=== PATIENT | female | born 1970 | race Caucasian/White ===

== ENCOUNTER → 2017-05-01 | Outpatient (CLI) | payer OTHER ==
--- NOTE | 2017-05-01 08:26 | MM ---
Reason for exam: screening (asymptomatic). Baseline mammogram. History: Took hormonal contraceptives for 4 years. Physical Findings: Nurse did not find any significant physical abnormalities on exam. MG Screening Mammo w CAD Bilateral CC and MLO view(s) were taken. The breast tissue is extremely dense which could obscure a lesion on mammography. Benign calcifications. There is chronic nodularity bilaterally. These results were verbally communicated with the patient and result sheet given to the patient on 05/01/17. ASSESSMENT: Benign, BI-RAD 2 RECOMMENDATION: Routine screening mammogram of both breasts in 1 year.
== END | disposition home or self-care (01) ==
LOC: RADMAMWWP 07:44
PROVIDERS: ATTEND Family Medicine
DX: Z12.31 Encounter for screening mammogram for malignant neoplasm of breast (principal)

== ENCOUNTER → 2020-04-25 | Outpatient (CLI) | payer OTHER ==
--- NOTE | 2020-04-26 10:58 | EEG ---
ELECTROENCEPHALOGRAM REPORT DATE OF SERVICE: 04/25/2020 PREAMBLE: This is a 49-year-old female who has been having difficulty staying awake through the day for 7 years. She will constantly fall asleep at any time. She used to be able to snap out of it quickly, however, more recently she has been having more difficulty orienting right afterwards. It has happened a couple times while driving. EEG FINDINGS: This is a 21 channel routine EEG recording in a patient utilizing 10/20 international system with referential and bipolar montages. The background consists of well developed, well regulated, moderate voltage activity in a 9-10 hertz alpha. Background is posterior dominant and reactive to eye opening and closing. Photic driving response was not seen. However, after 14 hertz, patient became very shaky, anxious, after which photic stimulation had to be discontinued. During this time, only high amplitude myogenic activity was seen. No epileptiform activity was seen during this time. Hyperventilation revealed no abnormalities. No focal or generalized epileptiform activity was seen. IMPRESSION: This is a normal awake EEG. No focal lateralized or epileptiform activity was seen. MMODL / IJN: [id number] /
== END | disposition home or self-care (01) ==
LOC: NEUROMAIN 04-24 07:57
PROVIDERS: ATTEND Family Medicine
DX: R56.9 Unspecified convulsions (principal)
CPT/HCPCS: 95816

== ENCOUNTER → 2020-05-09 | Outpatient (CLI) | payer OTHER ==
--- NOTE | 2020-05-09 16:20 | CONS ---
CONSULTATION REASON FOR CONSULTATION: Chronic hypersomnia. This is a 50-year-old female patient who has been having increased sleepiness to the point where this is affecting her functionality at work. She works for [email or web address] and she does and she works on a computer for quite some time. She is having tiredness and sleepiness to the point where she is having a hard time keeping herself awake while at work. Her condition has gotten worse and she is having some occasional sleep attacks for brief period of time. She drives only 4 miles back and forth to work and she has not had any motor vehicle accidents. She has been going to sleep at around 11 p.m., and she is waking up at 5 a.m. in the morning and this is her routine schedule. No change in her sleep schedule at all. She has been feeling depressed and she was started on Prozac 20 mg p.o. daily and she takes 6 o'clock in the morning. She has been told to snore occasionally. No reported witnessed apneas. She does grind her teeth and she has some restlessness in lower extremities bilaterally. She is a nose breather. No dry mouth, no episodes of waking up gasping for air. No heartburn or palpitation. As mentioned, she is waking up tired and sleepy. She takes naps during the day and during her lunchtime she takes a brief nap and this helps her quite a bit in getting refreshed. She also drinks coffee and she is drinking more to keep herself stimulated. No energy drinks. No history of substance abuse. No history of alcoholism. No history of head trauma. No history of meningitis. No history of any neurologic disease such as MS or CVA. No history of any dementia. She has no sleep paralysis, hallucinations or cataplexy. At times, she feels that her muscles are quite weak and this happens to her especially when she is fighting to stay awake. This is not related to any emotional situations such as laughter or anger. PAST MEDICAL HISTORY: Of depression on Prozac 20 mg p.o. daily. She has also history of allergic rhinitis. PAST SURGICAL HISTORY: Includes rotator cuff surgery and muscle repair in 2002 on the right and tubal ligation. DRUG ALLERGIES: None She has seasonal allergies. MEDICATIONS: Includes Prozac 20 mg p.o. daily and Flonase as needed. FAMILY HISTORY: Negative for narcolepsy. Negative for sleep apnea. REVIEW OF SYSTEMS: A 12-point review of system was done, positive findings are mentioned above in history of present illness. No recent weight gain or weight loss. The patient's body weight has been essentially stable. The patient sleeps on her back and she has a TV in her bedroom. Her weight has been stable, probably around 5 pounds weight gain over the past few years. No cough, sputum production, SOB. No nausea, vomiting. No heartburn. Some restlessness in the lower extremities. No sleepwalking or sleeptalking. No anxiety. No depression. Positive depression. No heartburn. BP is 131/78, pulse 76, respirations 16, temperature 98.1, saturation 99% on room air. Height is 5, 7 inches, weight is 131 and neck size is 13-1/3 of an inch. GENERAL APPEARANCE: Calm, comfortable. HEAD: Atraumatic, normocephalic. NECK: Supple. No JVD. No goiter or neck masses. Mallampati Class 1. LUNGS: Clear to auscultation. HEART: Heart sounds are regular rate and rhythm. Normal S1, S2. No S3, S4. No murmurs. ABDOMEN: Soft, nontender, no organomegaly. EXTREMITIES: No edema, no cyanosis or clubbing. NEUROLOGIC: Awake and alert, there is no focal neurological deficit. IMPRESSION: 1. Chronic hypersomnia. Rule out narcolepsy. Rule out a primary idiopathic hypersomnia. Sleep apnea is felt to be less likely. 2. History of depression on Prozac. 3. Chronic rhinitis. 4. Chronic sleepiness, current [place] Score is at 17. PLAN: 1. Will ask the patient to extend her sleep hours to an average of 7-8 hours if possible. 2. Caffeine will be helpful for daytime stimulation. This is advised. 3. Will advise to take naps during the day to help her get refreshed. 4. Will hold Prozac for around 2 weeks and this will be followed up by a PSG and second-day MSLT, looking for narcolepsy or any other pathology contributing to her chronic hypersomnia. 5. Continue implementing good sleep hygiene measures. 6. Will continue to follow and make further recommendations based on the results of the PSG and second MSLT. MMODL / IJN: [id number] /
== END | disposition home or self-care (01) ==
LOC: SLEEP 14:51
PROVIDERS: ATTEND Internal Medicine Critical Care Medicine
DX: G47.10 Hypersomnia, unspecified (principal); J31.0 Chronic rhinitis; Z86.59 Personal history of other mental and behavioral disorders
CPT/HCPCS: 99211

== ENCOUNTER → 2020-05-22 | Outpatient (CLI) | payer OTHER ==
--- NOTE | 2020-05-22 22:48 | MR ---
EXAMINATION TYPE: MR brain wo/w con DATE OF EXAM: 05/22/2020 COMPARISON: NONE HISTORY: Narcolepsy, partial seizure TECHNIQUE: Multiplanar, multisequence images of the brain and brainstem is performed without and with IV contras t, utilizing 6 mL intravenous Gadavist . FINDINGS: Diffusion weighted images demonstrate no evidence of a recent infarct or other diffusion ab normality. There is no extra-axial fluid collection or significant white matter signal abnormality. The ventricular system and cisternal spaces are normal in size and appearance. The brain volume is age appropriate. T2 coronal weighted images show hippocampal gyri to appear symmetric and felt within normal limits. Midline structures demonstrate normal morphology. The craniocervical junction appears within normal limits. Post contrast images demonstrate no abnormal enhancement. The dural venous sinuses appear pa tent. The visualized sinuses are clear and the globes are intact. IMPRESSION: Unremarkable study.
== END | disposition home or self-care (01) ==
LOC: RADMRIMAIN 19:27
PROVIDERS: ATTEND Family Medicine
DX: G47.419 Narcolepsy without cataplexy (principal); R56.9 Unspecified convulsions
CPT/HCPCS: 70553; A9585

== ENCOUNTER → 2020-07-04 | Outpatient (CLI) | payer OTHER ==
--- NOTE | 2020-07-06 11:38 | MM ---
Reason for exam: screening (asymptomatic). Last mammogram was performed 3 years and 2 months ago. History: Took hormonal contraceptives for 4 years. Physical Findings: A clinical breast exam by your physician is recommended on an annual basis and results should be correlated with mammographic findings. MG Screening Mammo w CAD Bilateral CC and MLO view(s) were taken. Prior study comparison: May 01, 2017, bilateral MG screening mammo w CAD. The breast tissue is extremely dense which could obscure a lesion on mammography. Finding: There are two developing grouped/clustered calcifications in the upper quadrant, middle position of the right breast. New finding since May 01, 2017. ASSESSMENT: Incomplete: need additional imaging evaluation, BI-RAD 0 RECOMMENDATION: Special view mammogram of the right breast. [facility] will attempt to contact patient to return for supplemental views.
== END | disposition home or self-care (01) ==
LOC: RADMAMWWP 16:05
PROVIDERS: ATTEND Family Medicine
DX: Z12.31 Encounter for screening mammogram for malignant neoplasm of breast (principal)
CPT/HCPCS: 77067

== ENCOUNTER → 2020-07-10 | Outpatient (CLI) | payer OTHER ==
--- NOTE | 2020-07-10 10:55 | MM ---
Reason for exam: additional evaluation requested from abnormal screening. Last mammogram was performed less than 1 month ago. History: Took hormonal contraceptives for 4 years. Physical Findings: Nurse did not find any significant physical abnormalities on exam. MG Work Up Mamm w CAD RT ML with magnification, CC with magnification, and ML view(s) were taken of the right breast. Prior study comparison: July 04, 2020, bilateral MG screening mammo w CAD. May 01, 2017, bilateral MG screening mammo w CAD. The breast tissue is extremely dense which could obscure a lesion on mammography. Finding: There are intermediate concern, suspicious coarse heterogeneous, grouped/clustered calcifications in the right breast. New finding and increase in number of calcifications since May 01, 2017. These results were verbally communicated with the patient and result sheet given to the patient on 07/10/20. ASSESSMENT: Incomplete: need additional imaging evaluation, BI-RAD 0 RECOMMENDATION: Ultrasound of the right breast.
--- NOTE | 2020-07-10 10:58 | USB ---
Reason for exam: additional evaluation requested from abnormal screening. History: Took hormonal contraceptives for 4 years. US Breast Workup Limited RT Right limited breast ultrasound including focal area of concern, retroareolar and axilla demonstrates a 0.3 x 0.4 x 0.4cm oval, cystic lesion at 9 o'clock, a 0.5 x 0.5 x 0.3cm oval, cystic lesion at 10 o'clock, a 1.0 x 0.7 x 0.5cm oval, cystic lesion at 10 o'clock, a 0.4 x 0.5 x 0.3cm oval, cystic, complex lesion at 11 o'clock and a 1.8 x 1.0 x 0.8cm lymph node at the axilla. These results were verbally communicated with the patient and result sheet given to the patient on 07/10/20. ASSESSMENT: Suspicious, BI-RAD 4 RECOMMENDATION: Stereotactic core biopsy of the right breast. Called Dr. Smith's office with mammographic findings and has scheduled an appointment for the patient for 07/20/20 at 1:[address] Ga. Biopsy scheduled for 07/27/20 at 8:00. PRELIMINARY REPORT CALLED AND FAXED TO DR. GA ON 07/10/20.
== END | disposition home or self-care (01) ==
LOC: RADMAMWWP 07:39
PROVIDERS: ATTEND Family Medicine
DX: R92.8 Other abnormal and inconclusive findings on diagnostic imaging of breast (principal)
CPT/HCPCS: 77065

== ENCOUNTER → 2020-07-27 | Day surgery (SDC) | payer OTHER ==
[2020-07-27 07:29] VITALS: RESP 16
--- NOTE | 2020-07-27 08:18 | P.GSHP ---
History of Present Illness H&P Date: 07/27/20 Chief Complaint: Mammographic abnormality right breast Margarita is a 50 -year-old white female seen in consultation for who had a screening mammogram performed revealing an area of microcalcification of concern in the right breast, a diagnostic right breast mammogram and ultrasound was subsequently performed on . This revealed an area of concern of group/clustered calcifications in the right breast. She does not feel any lesions of concern in either breast. She is not complaining of any pain, nipple discharge, or skin changes. She has not had any recent trauma or infection in the breast. She has never had an operative procedure and her breas t. Caffeine: 1 pot of coffee/day nicotine: 1 pack per day Theophylline: every other day Hormones: Negative Family history: mother: cervical, and skin cancer father: skin cancer brother: leukemia T cell Hormonal History: menarche: 13 1 miscarriage, breast fed: yes, age at first : 22 periods regular, last period 1 week ago BCP: 5 years hormones: none Surgical History: right rotator cuff surgery tubal ligation Medical History: Narcolepsy Social history: Smoke: One pack per day/years Alcohol:none Drugs: Marijuana daily/relaxation - Constitutional Constitutional: Reports sweats - EENT Eyes: denies blurred vision, denies pain Ears: bilateral: decreased hearing, deny: tinnitus Ears, nose, mouth and throat: Reports headache - Breasts Breasts: bilateral: as per HPI - Cardiovascular Cardiovascular: Denies chest pain, Denies shortness of breath - Respiratory Comment: smoker/ bronchitis/ history of pneumonia in past - Gastrointestinal Gastrointestinal: Denies abdominal pain, Denies diarrhea, Denies nausea, Denies vomiting - Genitourinary (Female) Genitourinary: Denies dysuria, Denies hematuria - Menstruation Menstruation: Reports period normal - Musculoskeletal Musculoskeletal: Reports as per HPI - Integumentary Integumentary: Denies pruritus, Denies rash - Neurological Comment: Narcolepsy Neurological: Denies numbness, Denies weakness - Psychiatric Psychiatric: Reports anxiety, Reports depression - Endocrine Endocrine: Reports fatigue, Denies weight change - Hematologic/Lymphatic Comment: none - Allergic/Immunologic Allergic/Immunologic: Reports seasonal allergies Past Medical History Past Medical History: No Reported History Additional Past Medical History / Comment(s): 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 History of Any Multi-Drug Resistant Organisms: None Reported Past Surgical History: Tubal Ligation Additional Past Surgical History / Comment(s): right rotator cuff repair Past Anesthesia/Blood Transfusion Reactions: No Reported Reaction Past Psychological History: Anxiety, Depression Smoking Status: Current every day smoker Past Alcohol Use History: Occasional Additional Past Alcohol Use History / Comment(s): 1ppd Past Drug Use History: Marijuana Medications and Allergies Home Medications Medication Instructions Recorded Confirmed Type Multivit with Calcium,Iron,Min 1 tab PO DAILY 02/25/14 07/27/20 History [Women's Daily Multivitamin] PARoxetine HCL [Paxil] 20 mg PO DAILY 02/25/14 07/27/20 History Biotin 5,000 mcg PO DAILY 07/19/20 07/27/20 History Cholecalciferol [Vitamin D3 (25 3,000 unit PO DAILY 07/19/20 07/27/20 History Mcg = 1000 Iu)] Fluticasone Nasal [place] [Flonase 1 spray NASAL DAILY 07/19/20 07/27/20 History Nasal [place]] modafiniL [Provigil] 200 mg PO BID 07/19/20 07/27/20 History Allergies Allergy/AdvReac Type Severity Reaction Status Date / Time No Known Allergies Allergy Verified 07/27/20 07:22 Surgical - Exam Vital Signs Temp Pulse Resp BP 98.7 F 80 16 109/63 07/27/20 07:24 07/27/20 07:24 07/27/20 07:24 07/27/20 07:24 BMI 20.4 - General well developed, well nourished, no distress - Eyes normal ocular movement - ENT normal pinna, no hearing loss - Neck no masses, trachea midline - Respiratory normal expansion, normal respiratory effort, clear to auscultation - Cardiovascular Rhythm: regular Heart Sounds: normal: S1, S2 - Abdomen Abdomen: soft, non tender, no guarding, no rigid, no rebound - Integumentary normal turgor - Neurologic no disoriented, no combative - Musculoskeletal normal gait - Psychiatric oriented to time, oriented to person, oriented to place, speech is normal breast exam: BRA: 30B Inspection: Grade 2 ptosis Palpation: Right breast: Multiple positional exam fibrocystic changes, no dominant masses or nodules of concern Right axilla: [place]dy adenopathy Left breast: Multi-positional exam fibrocystic changes, no dominant masses or nodules of concern Left axilla: [place] adenopathy Results Mammogram results and ultrasound of the right breast reviewed Assessment and Plan Assessment: Impression: 1. [place] [address] 2[place] [address] revealing cystic changes as well as a 1.8 cm lymph node in the axilla 3. Anxiety depression 4. Narcolepsy Plan: 1. Attempted stereotactic core biopsy of the right breast, this may not be technically possible secondary to the small size of the breast 2. Patient wishes Xanax prior to procedure Risks and benefits of procedure discussed with the patient. These include but are not limited to bleeding, infection, reaction to the anesthetic. She understands that it may not be technically possible to do the procedure secondary to the size of her breast. If this is the case then needle local excision in the operating room and be recommended. Cc: Dr. Smith Encounter: 30 minutes, greater than 50% of time in planning and counseling
--- NOTE | 2020-07-27 08:45 | P.PCN ---
Date of Procedure: 07/27/20 Preoperative Diagnosis: Microcalcifications of concern right breast UOQ Postoperative Diagnosis: same Procedure(s) Performed: Stereotactic core biopsy right breast Anesthesia: local Surgeon: Julia Ga Estimated Blood Loss (ml): 0 Pathology: other (breast tissue) Condition: stable Disposition: same day Indications for Procedure: Microcalcifications of concern right breast upper outer quadrant area Operative Findings: Biopsy specimen contains microcalcifications of concern Description of Procedure: The patient is a 50-year-old white female who on screening mammogram was noted to have an area of concern in the right breast. Diagnostic mammogram confirmed microcalcifications of concern in the upper outer quadrant portion of the breast. The patient was recommended to undergo a stereotactic core biopsy. Risks and benefits of the procedure were discussed with the patient and she wished to proceed. Alternatives such as watchful waiting or resection in the operating room were not recommended. The patient was taken to the stereotactic core biopsy room. She was positioned on the lo-rad table. A kier tender film was obtained and the area of concern was identified. A lateral to medial approach was utilized. The lesion was targeted. The breast was prepped using Betadine. 20 mL of 1% lidocaine were used to anesthetize the area of concern. A 9-gauge petite vacuum-assisted core rotating biopsy needle was inserted into the correct location. It was fired. Post fire film was obtained and the needle was noted to be in the correct location. This specimens were obtained from the 3 to 9 o'clock position going through 6:00 with 2 samples at each site. 14 core biopsies were retrieved. Radiograph of the specimen revealed the microcalcifications of concern had been sampled. A trimark clip was left and a radiograph was obtained which noted it to be in the correct location. The patient tolerated the procedure without complications. The specimen was sent to pathology. The patient will follow with Dr. Marino in approximately 1 week.
[2020-07-27 08:49] VITALS: BP 121/80; PULSE 82; TEMP 98.5
--- NOTE | 2020-07-27 12:59 | MM ---
EXAMINATION TYPE: MG stereo VAD BX RT DATE OF EXAM: 07/27/2020 COMPARISON: Mammogram 07/04/2020, 07/10/2020 CLINICAL HISTORY: Abnormal mammogram TECHNIQUE: Stereotactic guided core biopsy of right breast. FINDINGS: The procedure of stereotactic guided core biopsy was explained to the patient. Benefits, a lternatives, and risks were discussed. An informed consent was then obtained. The shortness pathway for biopsy was chosen. I performed the localization, then surgeon, Dr. Ned rai performed the remainder of the procedure. A vacuum assisted biopsy gun was used to obtain multipl e core samples. The patient tolerated the procedure well without any immediate complication. The patient was kept in the radiology department for short stay after the procedure and then discharged home in stable condi tion. Targeted calcifications are identified in specimen mammogram. Post biopsy mammogram shows the clip to appear in satisfactory position relative to the targeted area of concern on the preprocedure images. IMPRESSION: SUCCESSFUL, UNCOMPLICATED STEREOTACTIC GUIDED CORE BIOPSY OF AREA OF CONCERN IN THE right BREAST, FUL L PATHOLOGY RESULTS TO FOLLOW.
== END ==
LOC: RADMAMWWP 07:08
PROVIDERS: ATTEND Surgery
DX: D24.1 Benign neoplasm of right breast (principal); N60.11 Diffuse cystic mastopathy of right breast; N60.21 Fibroadenosis of right breast; N60.81 Other benign mammary dysplasias of right breast; G47.419 Narcolepsy without cataplexy; F41.9 Anxiety disorder, unspecified; F32.9 Major depressive disorder, single episode, unspecified; F17.210 Nicotine dependence, cigarettes, uncomplicated; Z98.890 Other specified postprocedural states; Z98.51 Tubal ligation status; Z79.899 Other long term (current) drug therapy; Z80.6 Family history of leukemia; Z80.8 Family history of malignant neoplasm of other organs or systems; Z80.49 Family history of malignant neoplasm of other genital organs
CPT/HCPCS: 88305; 19081; A4648

== ENCOUNTER → 2020-08-10 | Outpatient (CLI) | payer OTHER ==
[2020-08-10 09:24] VITALS: BP 126/74; PULSE 79; RESP 16; TEMP 98.3
--- NOTE | 2020-08-10 09:47 | P.PN ---
Subjective Progress Note Date: 08/10/20 Principal diagnosis: intraductal papilloma Margarita is a 50 year old white female status post a right breast stero biopsy. The revealed an intraductal papilloma. On review of the radiographs with Dr. Coello from radiology to appears that the clip may have migrated. It is recommended that she have a repeat mammogram today to determine how localization of the area can be performed. Also of concern is the fact that the patient has an infected 2 and has been on several courses of antibiotics and is scheduled for a root canal next week. At the present time she is taking Motrin would not be able to undergo needle local excisional biopsy secondary to the Motrin. She does not have any complaints related to the stereo biopsy. Family history: Medical: Cervical and skin cancer Father: Skin cancer Bladder: Leukemia T-cell Surgical history: Right rotator cuff rotator cuff surgery Tubal ligation Medical history: Narcolepsy Social history: Smoking: One pack per day/ 30 years Alcohol: Negative Drugs: Marijuana daily/relaxation Review of systems: HEENT: Headache/infected tooth Breasts: As per above Cardiovascular: Negative Vascular: Smoker/bronchitis/history of pneumonia in the past GI: Negative : Negative Musculoskeletal: Arthritis Neurologic: Narcolepsy Psychiatric: Anxiety/depression Endocrine: Fatigue Hematologic: Negative although the patient is taking Motrin Objective - Vital Signs Vital signs: Vital Signs Temp 98.3 F 08/10/20 09:21 Pulse 79 08/10/20 09:21 Resp 16 08/10/20 09:21 BP 126/74 08/10/20 09:21 Pulse Ox 100 08/10/20 09:21 Intake & Output 08/09/20 08/10/20 08/10/20 18:59 06:59 18:59 Weight 58.967 kg - Exam BMI 20.4 - Constitutional General appearance: Present: average body habitus - EENT Eyes: Present: EOMI ENT: Present: hearing grossly normal - Neck Neck: Present: normal ROM - Respiratory Respiratory: bilateral: CTA - Cardiovascular Rhythm: regular Heart sounds: normal: S1, S2 - Integumentary Integumentary Comment(s): stero biopsy site clean and dry no infection Integumentary: Present: normal turgor - Musculoskeletal Musculoskeletal: Present: gait normal - Psychiatric Psychiatric: Present: A&O x's 3, appropriate affect Assessment and Plan Assessment: Impression: 1. Prostatectomy core biopsy positive for intraductal papilloma 2. Appears that the stereo clip has migrated we will obtain a mammogram today to determine how to best localize the area 3. Infected tooth patient on Motrin 4. new diagnosis of narcolepsy Plan: 1. Mammogram of the right breast to determine how to best localize the area of the intraductal papilloma 2. Patient is continuing to follow with entered on week surgeon 3. Probable right breast needle localization excisional lumpectomy, possible oncoplastic tissue transfer 4. Clearance from Dr. Smith Risk and benefits of the procedure discussed with the patient. She understands and depending on if we are able to localize this will be scheduled in the near future. CC: DR. Smith
--- NOTE | 2020-08-10 13:34 | MM ---
Reason for exam: additional evaluation requested from abnormal screening. Last mammogram was performed 1 month ago. History: Patient has history of high-risk lesion on a previous biopsy at age 50. High risk MG stereo VAD BX RT of the right breast, July 27, 2020. Took hormonal contraceptives for 4 years. MG 3D Diag Mammo W/Cad RT CC and LM view(s) were taken of the right breast. Prior study comparison: July 10, 2020, right breast MG work up mamm w CAD RT. July 04, 2020, bilateral MG screening mammo w CAD. The breast tissue is heterogeneously dense. This may lower the sensitivity of mammography. Repeat mammogram post recent stereotactic biopsy. Upper outer quadrant hematoma has decreased in size, now 1.2cm. Adjacent microclip. Clip can be targeted for needle localization of papilloma on pathology. Regional microcalcifications remain in the right breast. These results were verbally communicated with the patient and result sheet given to the patient on 08/10/20. ASSESSMENT: Suspicious, BI-RAD 4 RECOMMENDATION: Localization and excision of the right breast. (lateral approach targeting the clip)
== END | disposition home or self-care (01) ==
LOC: WWCWWP 09:02
PROVIDERS: ATTEND Surgery
DX: R92.8 Other abnormal and inconclusive findings on diagnostic imaging of breast (principal)
CPT/HCPCS: 77061; 77065

== ENCOUNTER 2020-09-27 13:16 | Day surgery (SDC) | payer OTHER ==
[2020-09-22 14:37] VITALS: BMI 20.3
--- NOTE | 2020-09-22 17:53 | P.PN ---
Subjective Progress Note Date: 09/22/20 intraductal papilloma Margarita is a 50 -year-old white female seen in consultation for who had a screening mammogram performed revealing an area of microcalcification of concern in the right breast, a diagnostic right breast mammogram [place] [address]. This revealed an area of concern of group/clustered calcifications in the right breast. She does not feel any lesions of concern in either breast. She is not complaining of any pain, nipple discharge, or skin changes. She has not had any recent trauma or infection in the breast. She underwent a stereotactic core biopsy on [id number] of the right breast. This was a small intraductal papilloma. There was some concern as to whether the clip had migrated after the suture was done. [place] [address]. This revealed an area of hematoma and an adjacent microclip. It was felt that the clip could be targeted for needle localization of papilloma. Caffeine: 1 pot of coffee/day nicotine: 1 pack per day Theophylline: every other day Hormones: Negative Family history: mother: cervical, and skin cancer father: skin cancer brother: leukemia T cell Hormonal History: menarche: 13 1 miscarriage, breast fed: yes, age at first : 22 periods regular, last period 1 week ago BCP: 5 years hormones: none Surgical History: right rotator cuff surgery tubal ligation Medical History: Narcolepsy Social history: Smoke: One pack per day/years Alcohol:none Drugs: Marijuana daily/relaxation - Constitutional Constitutional: Reports sweats - EENT Eyes: denies blurred vision, denies pain Ears: bilateral: decreased hearing, deny: tinnitus Ears, nose, mouth and throat: Reports headache - Breasts Breasts: bilateral: as per HPI - Cardiovascular Cardiovascular: Denies chest pain, Denies shortness of breath - Respiratory Comment: smoker/ bronchitis/ history of pneumonia in past - Gastrointestinal Gastrointestinal: Denies abdominal pain, Denies diarrhea, Denies nausea, Denies vomiting - Genitourinary (Female) Genitourinary: Denies dysuria, Denies hematuria - Menstruation Menstruation: Reports period normal - Musculoskeletal Musculoskeletal: Reports as per HPI - Integumentary Integumentary: Denies pruritus, Denies rash - Neurological Comment: Narcolepsy Neurological: Denies numbness, Denies weakness - Psychiatric Psychiatric: Reports anxiety, Reports depression - Endocrine Endocrine: Reports fatigue, Denies weight change - Hematologic/Lymphatic Comment: none - Allergic/Immunologic Allergic/Immunologic: Reports seasonal allergies Objective - Vital Signs Vital signs: Vital Signs Temp 98.3 F 08/10/20 09:21 Pulse 79 08/10/20 09:21 Resp 16 08/10/20 09:21 BP 126/74 08/10/20 09:21 Pulse Ox 100 08/10/20 09:21 - Exam BMI 20.4 - Constitutional General appearance: Present: average body habitus - EENT Eyes: Present: EOMI ENT: Present: hearing grossly normal - Neck Neck: Present: normal ROM - Respiratory Respiratory: bilateral: CTA - Cardiovascular Rhythm: regular Heart sounds: normal: S1, S2 - Gastrointestinal General gastrointestinal: Present: soft - Integumentary Integumentary: Present: normal turgor - Musculoskeletal Musculoskeletal: Present: gait normal - Psychiatric Psychiatric: Present: A&O x's 3, appropriate affect - Additional findings Additional findings: breast exam: James: 30 B Inspection: Grade 2 ptosis Palpation: Right breast: Multi-positional exam fibrocystic changes, no dominant masses or nodules of concern Right axilla: Shoddy adenopathy Left breast: Multi-positional exam fibrocystic changes no dominant masses or nodules of concern Left axilla: Shoddy adenopathy Stereo biopsy site clean and dry Assessment and Plan Assessment: Impression: 1. stero core biopsy positive for intraductal papilloma 2. Appears that the stereo clip has migrated we will obtain a mammogram today to determine how to best localize the area 3. Infected tooth patient on Motrin 4. new diagnosis of narcolepsy Plan: 1. Mammogram of the right breast to determine how to best localize the area of the intraductal papilloma/ this was done it is felt that the clip can be localized 2. Patient is continuing to follow with oral surgeon 3. Probable right breast needle localization excisional lumpectomy, possible oncoplastic tissue transfer 4. Clearance from Dr. Smith Risk and benefits of the procedure discussed with the patient. She understands and depending on if we are able to localize this will be scheduled in the near future. CC: DR. Smith Objective - Vital Signs Vital signs: Intake & Output 09/21/20 09/22/20 09/22/20 18:59 06:59 18:59 Weight 58.967 kg - Exam BMI 20.4 - Constitutional General appearance: Present: average body habitus - EENT Eyes: Present: EOMI ENT: Present: hearing grossly normal - Neck Neck: Present: normal ROM - Respiratory Respiratory: bilateral: CTA - Cardiovascular Rhythm: regular Heart sounds: normal: S1, S2 - Gastrointestinal General gastrointestinal: Present: normal bowel sounds, soft - Integumentary Integumentary: Present: normal turgor - Musculoskeletal Musculoskeletal: Present: gait normal - Psychiatric Psychiatric: Present: A&O x's 3 - Additional findings Additional findings: breast exam: Bra: 30 B Inspection: Grade 2 ptosis Palpation: Right breast: Multi-positional exam fibrocystic changes, no dominant masses or nodules of concern Right axilla: Shoddy adenopathy Left breast: Multi-positional exam fibrocystic changes no dominant masses or nodules of concern Left axilla: Shoddy adenopathy Stereo biopsy site clean and dry Assessment and Plan Assessment: Assessment and Plan Assessment: Impression: 1. stero core biopsy positive for intraductal papilloma 2. Appears that the stereo clip has migrated, repeat mammogram revealed a hematoma but the clip appeared to be in the area which was felt to be near the papilloma 3. Infected tooth patient on Motrin, must stop Motrin 1 week prior to biopsy 4. new diagnosis of narcolepsy Plan: 1. Mammogram of the right breast to determine how to best localize the area of the intraductal papilloma/ this was done it is felt that the clip can be localized 2. Patient is continuing to follow with oral surgeon 3. Probable right breast needle localization excisional lumpectomy, possible oncoplastic tissue transfer 4. Clearance from Dr. Smith Risk and benefits of the procedure discussed with the patient. She understands and depending on if we are able to localize this will be scheduled in the near future. CC: DR. Smith
--- NOTE | 2020-09-27 11:49 | P.PN ---
Progress Note - Text Progress Note Date: 09/27/20 intraductal papilloma Margarita is a 50 -year-old white female seen in consultation for who had a screening mammogram performed revealing an area of microcalcification of concern in the right breast, a diagnostic right breast mammogram [place] [address]. This revealed an area of concern of group/clustered calcifications in the right breast. She does not feel any lesions of concern in either breast. She is not complaining of any pain, nipple discharge, or skin changes. She has not had any recent trauma or infection in the breast. She underwent a stereotactic core biopsy on [id number] of the right breast. This was a small intraductal papilloma. There was some concern as to whether the clip had migrated after the suture was done. [place] [address]. This revealed an area of hematoma and an adjacent microclip. It was felt that the clip could be targeted for needle localization of papilloma. Caffeine: 1 pot of coffee/day nicotine: 1 pack per day Theophylline: every other day Hormones: Negative Family history: mother: cervical, and skin cancer father: skin cancer brother: leukemia T cell Hormonal History: menarche: 13 1 miscarriage, breast fed: yes, age at first : 22 periods regular, last period 1 week ago BCP: 5 years hormones: none Surgical History: right rotator cuff surgery tubal ligation Medical History: Narcolepsy Social history: Smoke: One pack per day/years Alcohol:none Drugs: Marijuana daily/relaxation - Constitutional Constitutional: Reports sweats - EENT Eyes: denies blurred vision, denies pain Ears: bilateral: decreased hearing, deny: tinnitus Ears, nose, mouth and throat: Reports headache - Breasts Breasts: bilateral: as per HPI - Cardiovascular Cardiovascular: Denies chest pain, Denies shortness of breath - Respiratory Comment: smoker/ bronchitis/ history of pneumonia in past - Gastrointestinal Gastrointestinal: Denies abdominal pain, Denies diarrhea, Denies nausea, Denies vomiting - Genitourinary (Female) Genitourinary: Denies dysuria, Denies hematuria - Menstruation Menstruation: Reports period normal - Musculoskeletal Musculoskeletal: Reports as per HPI - Integumentary Integumentary: Denies pruritus, Denies rash - Neurological Comment: Narcolepsy Neurological: Denies numbness, Denies weakness - Psychiatric Psychiatric: Reports anxiety, Reports depression - Endocrine Endocrine: Reports fatigue, Denies weight change - Hematologic/Lymphatic Comment: none - Allergic/Immunologic Allergic/Immunologic: Reports seasonal allergies Objective - Vital Signs Vital signs: Vital Signs Temp 98.3 F 08/10/20 09:21 Pulse 79 08/10/20 09:21 Resp 16 08/10/20 09:21 BP 126/74 08/10/20 09:21 Pulse Ox 100 08/10/20 09:21 - Exam BMI 20.4 - Constitutional General appearance: Present: average body habitus - EENT Eyes: Present: EOMI ENT: Present: hearing grossly normal - Neck Neck: Present: normal ROM - Respiratory Respiratory: bilateral: CTA - Cardiovascular Rhythm: regular Heart sounds: normal: S1, S2 - Gastrointestinal General gastrointestinal: Present: soft - Integumentary Integumentary: Present: normal turgor - Musculoskeletal Musculoskeletal: Present: gait normal - Psychiatric Psychiatric: Present: A&O x's 3, appropriate affect - Additional findings Additional findings: breast exam: James: 30 B Inspection: Grade 2 ptosis Palpation: Right breast: Multi-positional exam fibrocystic changes, no dominant masses or nodules of concern Right axilla: Shoddy adenopathy Left breast: Multi-positional exam fibrocystic changes no dominant masses or nodules of concern Left axilla: Shoddy adenopathy Stereo biopsy site clean and dry Assessment and Plan Assessment: Impression: 1. stero core biopsy positive for intraductal papilloma 2. Appears that the stereo clip has migrated we will obtain a mammogram today to determine how to best localize the area 3. Infected tooth patient on Motrin 4. new diagnosis of narcolepsy Plan: 1. Mammogram of the right breast to determine how to best localize the area of the intraductal papilloma/ this was done it is felt that the clip can be localized 2. Patient is continuing to follow with oral surgeon 3. Probable right breast needle localization excisional lumpectomy, possible oncoplastic tissue transfer 4. Clearance from Dr. Smith Risk and benefits of the procedure discussed with the patient. She understands and depending on if we are able to localize this will be scheduled in the near future. CC: DR. Smith Objective - Vital Signs Vital signs: Intake & Output 09/21/20 09/22/20 09/22/20 18:59 06:59 18:59 Weight 58.967 kg - Exam BMI 20.4 - Constitutional General appearance: Present: average body habitus - EENT Eyes: Present: EOMI ENT: Present: hearing grossly normal - Neck Neck: Present: normal ROM - Respiratory Respiratory: bilateral: CTA - Cardiovascular Rhythm: regular Heart sounds: normal: S1, S2 - Gastrointestinal General gastrointestinal: Present: normal bowel sounds, soft - Integumentary Integumentary: Present: normal turgor - Musculoskeletal Musculoskeletal: Present: gait normal - Psychiatric Psychiatric: Present: A&O x's 3 - Additional findings Additional findings: breast exam: Bra: 30 B Inspection: Grade 2 ptosis Palpation: Right breast: Multi-positional exam fibrocystic changes, no dominant masses or nodules of concern Right axilla: Shoddy adenopathy Left breast: Multi-positional exam fibrocystic changes no dominant masses or nodules of concern Left axilla: Shoddy adenopathy Stereo biopsy site clean and dry Assessment and Plan Assessment: Assessment and Plan Assessment: Impression: 1. stero core biopsy positive for intraductal papilloma 2. Appears that the stereo clip has migrated, repeat mammogram revealed a hematoma but the clip appeared to be in the area which was felt to be near the papilloma 3. Infected tooth patient on Motrin, must stop Motrin 1 week prior to biopsy 4. new diagnosis of narcolepsy Plan: 1. Mammogram of the right breast to determine how to best localize the area of the intraductal papilloma/ this was done it is felt that the clip can be localized 2. Patient is continuing to follow with oral surgeon 3. right breast needle localization excisional lumpectomy, possible oncoplastic tissue transfer 4. Clearance from Dr. Smith Risk and benefits of the procedure discussed with the patient. She understands and wishes to proceed. CC: DR. Smith
[~2020-09-27 13:16] MED LIST: DEXAMETHASONE SOD PHOSPHATE 4 MG/ML 1 ML VIAL IV ONE; HEPARIN SODIUM,PORCINE 5,000 UNIT/ML 1 ML VIAL SQ PRN; LACTATED RINGERS 1,000 ML IV SCH; LIDOCAINE 1% (10MG/ML) FOR IV START INTRADERMA PRN; ONDANSETRON 4 MG/2 ML VIAL IVP ONE; Pre Op ABX Message 1 EACH MISC MISCELLANE ONE
[2020-09-27] MEDS ORDERED: ALPRAZolam 0.5 MG TAB ONE (13:57)
[2020-09-27] MEDS ORDERED: LIDOCAINE 1% INJ 10MG/ML (20 ML MDV) SQ ONE (14:24)
[2020-09-27] MEDS ORDERED: KETOROLAC 15 MG/ML 1 ML VIAL ONE (15:51)
[2020-09-27] MEDS ORDERED: fentaNYL (PF) 50 MCG/ML 2 ML AMP ONE (15:51)
[2020-09-27] MEDS ORDERED: PHENYLEPHRINE 10 MG/ML VIAL ONE (15:51)
[2020-09-27] MEDS ORDERED: LIDOCAINE 1% INJ 10MG/ML (20 ML MDV) ONE (15:51)
[2020-09-27] MEDS ORDERED: PROPOFOL 10 MG/ML 20 ML VIAL IV ONE (15:51)
[2020-09-27] MEDS ORDERED: MIDAZOLAM 2 MG/2 ML VIAL ONE (15:51)
[2020-09-27] MEDS ORDERED: LACTATED RINGERS 1,000 ML IV ONE (16:36)
--- NOTE | 2020-09-27 17:04 | P.OP ---
Date of Procedure: 09/27/20 Preoperative Diagnosis: Intraductal papilloma Postoperative Diagnosis: Same Procedure(s) Performed: Needle localization excisional lumpectomy Anesthesia: ZANA Surgeon: Julia Ga Estimated Blood Loss (ml): 15 IV fluids (ml): 700 Pathology: other (breast tissue) Condition: stable Disposition: same day Indications for Procedure: core biopsy with intraductal papilloma Operative Findings: Dense breast tissue Description of Procedure: Following needle localization of an area of concern in the right breast the patient was brought to the operating room. Following induction of general anesthesia the right breast was prepped and draped in a sterile fashion. An incision was made and followed down the area of the needle. Surrounding tissue was excised. This was dissected down to the pectoralis muscle. After being assured that hemostasis was attained titanium clips were placed. The deep tissues were closed using 3-0 Vicryl suture. This is followed by closure of the skin with 4-0 Monocryl. Steri-Strips were applied. The specimen was painted for orientation. Radiograph revealed the area of concern had been removed. All instrument and sponge counts were correct at the end of the case.
--- NOTE | 2020-09-27 17:06 | P.DS ---
Providers Attending physician: Julia Ga Primary care physician: Jeison Smith Plan - Discharge Summary Discharge Rx Participant: Yes New Discharge Prescriptions: No Action modafiniL [Provigil] 200 mg PO BID Fluticasone Nasal [place] [Flonase Nasal [place]] 1 spray NASAL DAILY FLUoxetine HCL [PROzac] 20 mg PO QAM Discharge Medication List Fluticasone Nasal [place] [Flonase Nasal [place]] 1 spray NASAL DAILY 07/19/20 [History] modafiniL [Provigil] 200 mg PO BID 07/19/20 [History] FLUoxetine HCL [PROzac] 20 mg PO QAM 08/10/20 [History] Follow up Appointment(s)/Referral(s): Julia Ga MD [STAFF PHYSICIAN] - 10/06/20 10:20 am Activity/Diet/Wound Care/Special Instructions: wear bra at all times may drive after 24 hours if not using narcotic pain medication may shower after 48 hours Discharge Disposition: HOME SELF-CARE
[2020-09-27 17:14] VITALS: TEMP 97.6
--- NOTE | 2020-09-27 17:25 | MM ---
EXAMINATION TYPE: MG pre op needle loc RT DATE OF EXAM: 09/27/2020 COMPARISON: NONE CLINICAL HISTORY: Abnormal biopsy, papilloma high-risk lesion by stereotactic core biopsy TECHNIQUE: Needle localization with wire placement and surgical excision of area of concern in the right breast. FINDINGS: The procedure of needle localization with wire placement and than surgical excision was explained to the patient. Benefits, alternatives, and risks were discussed. An informed consent was then obtained. The shortest pathway for procedure was chosen. Shortest pathway was lateral approach. The overlying skin was prepped and draped in usual sterile fashion. Lidocaine buffered with bicarbonate was used as anesthetic into the skin and subcutaneous tissue up to the level of area of concern. A 5 cm needle was used. It was placed via a lateral approach under mammographic guidance. Subsequent 90 degrees mammogram show the needle to be in satisfactory position relative to the targeted area. At this point, wire was placed and the needle was withdrawn. Initial attempt withdrew the wire with the needle and the procedure was repeated without difficulty, wire positioning was confirmed. The wire was fixed to patient's skin. Images were marked for surgeon. Specimen: Targeted core marker and wire are identified in specimen mammogram. IMPRESSION: 1. Successful wire localization and excision. Recommendations: 1. Recommendations are pending pathology results. Pathology Results: Benign RIGHT BREAST EXCISION WITH NEEDLE LOCALIZATION: Two benign intraductal papillomas, each measuring 1 mm. Biopsy site change, fibrosis change with apocrine metaplasia, columnar cell changes, sclerosing adenosis and scattered microcalcification present. Focal usual ductal hyperplasia (mild/moderate to focally florid). All margins negative. All sections negative for in situ carcinoma or invasive carcinoma. Recommendation Follow up mammogram of the right breast in 6 months. [place]
[2020-09-27 17:38] VITALS: RESP 16
[2020-09-27] MEDS ORDERED: HYDROmorphone 0.5 MG/0.5 ML SYRINGE IVP ONE (17:40)
[2020-09-27] MEDS ORDERED: HYDROcodone/APAP 5-325MG 1 EACH TAB ONE (18:20)
[2020-09-27] MEDS ORDERED: HYDROcodone/APAP 5-325MG 1 EACH TAB PO ONE ×2 (18:20→18:23)
[2020-09-27 18:39] VITALS: BP 121/77; PULSE 71
== END 2020-09-27 18:53 | disposition home or self-care (01) ==
LOC: OR 13:16
PROVIDERS: ATTEND Surgery
DX: D24.1 Benign neoplasm of right breast (principal); N64.81 Ptosis of breast; N60.12 Diffuse cystic mastopathy of left breast; N60.11 Diffuse cystic mastopathy of right breast; R59.0 Localized enlarged lymph nodes; K04.7 Periapical abscess without sinus; G47.419 Narcolepsy without cataplexy; K08.89 Other specified disorders of teeth and supporting structures; F41.9 Anxiety disorder, unspecified; F32.9 Major depressive disorder, single episode, unspecified; F17.210 Nicotine dependence, cigarettes, uncomplicated; Z98.890 Other specified postprocedural states; Z98.51 Tubal ligation status; Z80.49 Family history of malignant neoplasm of other genital organs; Z80.8 Family history of malignant neoplasm of other organs or systems; Z80.6 Family history of leukemia; Z79.899 Other long term (current) drug therapy
CPT/HCPCS: 19301; 81025; 88307; 76098; 19281; J2250; J1644; J1100; J2370; J2405; J2001; J3010; J1885; J2704; J1170

== ENCOUNTER → 2020-10-06 | Outpatient (CLI) | payer OTHER ==
[2020-10-06 10:53] VITALS: BP 130/84; PULSE 95; RESP 16; TEMP 98.3
--- NOTE | 2020-10-06 10:54 | P.PN ---
Progress Note - Text Progress Note Date: 10/06/20 Margarita is status post needle localization and [place] [address]. Pathology revealed 2 benign intraductal papillomas. Patient has no complaints related to the surgery. The patient complains of nausea about a week after surgery. She also complains of SOB over the past month, before surgery. Physical Exam: lungs: clear heart RRR incision: clean and dry Impression: intraductal papilloma right breast anxiety, SOB, Plan: 1. right breast mammogram in 6 months 2. follow up with center rep if sx worse follow up in ER CC: DR. Smith
== END | disposition home or self-care (01) ==
LOC: WWCWWP 10:26
PROVIDERS: ATTEND Surgery
DX: Z53.9 Procedure and treatment not carried out, unspecified reason (principal)

== ENCOUNTER → 2021-02-23 | Outpatient (CLI) | payer OTHER ==
--- NOTE | 2021-02-23 14:14 | CT ---
EXAMINATION TYPE: CT abdomen pelvis w con DATE OF EXAM: 02/23/2021 COMPARISON: None INDICATION: mid abd pain, bloody and mucus stools DLP: 366.5 mGycm, Automated exposure control for dose reduction was used. CONTRAST: 100 mL of Isovue 300. Study performed with Oral Contrast TECHNIQUE: Axial images were obtained from above the diaphragm to the pubic rami in the axial plane a t 5 mm thick sections. Reconstructed images are reviewed on the computer in the coronal plane. FINDINGS: Limited CT sections are obtained the lung bases. The lung bases are clear. CT ABDOMEN: Liver: Normal Spleen: Normal Pancreas: Normal Adrenal glands: The adrenal glands are normal. Gallbladder: Normal Kidneys: No masses are evident. No hydronephrosis is present. There is a 1.1 cm cyst superior pole right kidney measuring 20 Hounsfield units. Delayed images were obtained through the kidneys, which remain unremarkable. Aorta: Normal Inferior vena cava: Normal. CT PELVIS: Loops of bowel within the abdomen and pelvis are normal. Some fecal debris is scattered through the c olon. There are loops of bowel which are incompletely distended or lack oral contrast limiting the ir evaluation. Appendix: Not visualized. No suspicious inflammatory changes or dilated tubular structures are eviden t Urinary bladder: Normal. Genitourinary structures: Uterus is normal. Follicle may be on the left ovary. Ovaries are otherwise unremarkable. Osseous structures: No suspicious lytic or sclerotic lesions. IMPRESSIONS: 1. No suspicious acute changes. 2. Small right renal cyst. 3. No definite etiology of mucus or bloody stool.
== END | disposition home or self-care (01) ==
LOC: RADCTMAIN 07:18
PROVIDERS: ATTEND Family Medicine
DX: N28.1 Cyst of kidney, acquired (principal)
CPT/HCPCS: 74177; Q9967

== ENCOUNTER 2021-03-29 07:37 | Day surgery (SDC) | payer OTHER ==
[~2021-03-29 07:37] MED LIST changes: -DEXAMETHASONE SOD PHOSPHATE 4 MG/ML 1 ML VIAL IV ONE; -HEPARIN SODIUM,PORCINE 5,000 UNIT/ML 1 ML VIAL SQ PRN; -LIDOCAINE 1% (10MG/ML) FOR IV START INTRADERMA PRN; -ONDANSETRON 4 MG/2 ML VIAL IVP ONE; -Pre Op ABX Message 1 EACH MISC MISCELLANE ONE
[2021-03-29 07:54] VITALS: RESP 16; TEMP 97.4
[2021-03-29] MEDS ORDERED: LIDOCAINE 1% (10MG/ML) FOR IV START INTRADERMA ONE (07:59)
[2021-03-29] MEDS ORDERED: PROPOFOL 10 MG/ML 20 ML VIAL IV ONE (08:23)
[2021-03-29] MEDS ORDERED: LIDOCAINE 1% INJ 10MG/ML (20 ML MDV) ONE (08:23)
--- NOTE | 2021-03-29 08:57 | P.PCN ---
Date of Procedure: 03/29/21 Description of Procedure: BRIEF HISTORY: Patient is a 42-year-old female presenting for outpatient colonoscopy for evaluation of change in bowel habits/altered bowel function. The patient reports that over the past 6 months she has had increased frequency of bowel movements, the sensation of incomplete evacuation and mucus per rectum. No family history of colon cancer but she does report ulcerative colitis in her son. PROCEDURE PERFORMED: Colonoscopy with biopsy. PREOPERATIVE DIAGNOSIS: Change in bowel habits, altered bowel function, no prior colonoscopy. ESTIMATED BLOOD LOSS: Minimal. IV sedation per Anesthesia. PROCEDURE: After informed consent was obtained, the patient, was brought into the endoscopy unit. IV sedation was administered by Anesthesia under continuous monitoring. Digital rectal examination was normal. Initially the Olympus CF-190 flexible vid eo colonoscope was then inserted in the rectum, gradually advanced into the cecum without any difficulty. Careful examination was performed as the scope was gradually being withdrawn. Ileocecal valve and the appendiceal orifice were visualized and appeared normal. Prep was excellent. Mucosa of the cecum, ascending colon, transverse colon, descending colon, sigmoid colon, and rectum appeared normal, with biopsies of the right and left colon performed in the setting of altered bowel function. Terminal ileum was intubated and appeared normal. Retroflexion was performed in the rectum and no lesions were seen and internal hemorrhoids were noted . The patient tolerated the procedure well. IMPRESSION: Normal-appearing colon from rectum to cecum and normal-appearing terminal ileum with random biopsies taken of the right and left colon given altered bowel function. Internal hemorrhoids. RECOMMENDATIONS: Findings of this examination were discussed with the patient and her family. Okay to resume diet. Okay to resume medications. Await pathology from biopsies. Recommend local hemorrhoidal care with warm baths, Tucks pads, topical hemorrhoidal therapy, stool softeners and decreasing toilet time as needed for symptomatic hemorrhoids in the future.
[2021-03-29 09:36] VITALS: BP 123/63; PULSE 59
== END 2021-03-29 09:41 | disposition home or self-care (01) ==
LOC: ORWHC2ENDO 07:37
PROVIDERS: ATTEND Internal Medicine
DX: R15.0 Incomplete defecation (principal); K64.8 Other hemorrhoids; R19.4 Change in bowel habit; Z79.899 Other long term (current) drug therapy; Z98.890 Other specified postprocedural states; F17.210 Nicotine dependence, cigarettes, uncomplicated; F32.9 Major depressive disorder, single episode, unspecified; G47.419 Narcolepsy without cataplexy
CPT/HCPCS: 81025; 88305; 45380; J2001; J2704

== ENCOUNTER → 2021-03-30 | Outpatient (CLI) | payer OTHER | LOC: WWCWWP 14:39 | PROVIDERS: ATTEND Surgery | DX: Z53.9 Procedure and treatment not carried out, unspecified reason (principal) ==

== ENCOUNTER → 2021-04-13 | Outpatient (CLI) | payer OTHER ==
--- NOTE | 2021-04-17 14:05 | MM ---
Reason for exam: follow-up at short interval from prior study. Last mammogram was performed 8 months ago. History: Patient has history of high-risk lesion on a previous biopsy at age 50. Benign MG pre op needle loc RT of the right breast, September 27, 2020. High risk MG stereo VAD BX RT of the right breast, July 27, 2020. Took hormonal contraceptives for 4 years. Physical Findings: Nurse did not find any significant physical abnormalities on exam. MG 3D Diag Mammo W/Cad RT CC and MLO view(s) were taken of the right breast. Prior study comparison: August 10, 2020, right breast MG 3d diag mammo w/cad RT. July 04, 2020, bilateral MG screening mammo w CAD. The breast tissue is heterogeneously dense. This may lower the sensitivity of mammography. Finding: There are stable, fine, grouped, segmental calcifications in the right breast. No significant changes in finding since August 10, 2020 and July 04, 2020. These results were verbally communicated with the patient and result sheet given to the patient on 04/13/21. ASSESSMENT: Benign, BI-RAD 2 RECOMMENDATION: Return to routine screening mammogram schedule for both breasts.
== END | disposition home or self-care (01) ==
LOC: RADMAMWWP 13:00
PROVIDERS: ATTEND Surgery
DX: R92.2 Inconclusive mammogram (principal)
CPT/HCPCS: 77061; 77065

== ENCOUNTER → 2021-07-06 | Outpatient (CLI) | payer OTHER ==
--- NOTE | 2021-07-10 08:15 | MM ---
Reason for exam: screening (asymptomatic). Last mammogram was performed 3 months ago. History: Patient has history of high-risk lesion on a previous biopsy at age 50 and history of other cancer. Benign MG pre op needle loc RT of the right breast, September 27, 2020. High risk MG stereo VAD BX RT of the right breast, July 27, 2020. Took hormonal contraceptives for 4 years. Physical Findings: A clinical breast exam by your physician is recommended on an annual basis and results should be correlated with mammographic findings. MG 3D Screening Mammo W/Cad Bilateral CC and MLO view(s) were taken. XCCL view(s) were taken of the right breast. Prior study comparison: April 13, 2021, right breast MG 3d diag mammo w/cad RT. July 04, 2020, bilateral MG screening mammo w CAD. May 01, 2017, bilateral MG screening mammo w CAD. The breast tissue is extremely dense which could obscure a lesion on mammography. There is chronic nodularity in the right breast. Post excisional changes right breast. Increasing bilateral grouped and regional calcifications. ASSESSMENT: Incomplete: need additional imaging evaluation, BI-RAD 0 RECOMMENDATION: Special view mammogram of both breasts. (magnification) Ultrasound of both breasts. (given previous high risk lesion and dense breast) [facility] will attempt to contact patient to return for supplemental views and ultrasound.
== END | disposition home or self-care (01) ==
LOC: RADMAMWWP 16:45
PROVIDERS: ATTEND Surgery
DX: Z12.31 Encounter for screening mammogram for malignant neoplasm of breast (principal)
CPT/HCPCS: 77063; 77067

== ENCOUNTER → 2021-07-17 | Outpatient (CLI) | payer OTHER ==
--- NOTE | 2021-07-17 10:28 | MM ---
Reason for exam: additional evaluation requested from abnormal screening. Last mammogram was performed less than 1 month ago. History: Patient has history of high-risk lesion on a previous biopsy at age 50 and history of other cancer. Benign MG pre op needle loc RT of the right breast, September 27, 2020. High risk MG stereo VAD BX RT of the right breast, July 27, 2020. Took hormonal contraceptives for 4 years. Physical Findings: Nurse did not find any significant physical abnormalities on exam. MG 3D Work Up W/Cad LIBERTAD Bilateral CC with magnification, LM with magnification, and LM view(s) were taken. Prior study comparison: July 06, 2021, bilateral MG 3d screening mammo w/cad. August 10, 2020, right breast MG 3d diag mammo w/cad RT. The breast tissue is extremely dense which could obscure a lesion on mammography. Finding: There are at least 5-7 coarse heterogeneous, grouped/clustered calcifications in both breasts. There is excision change in the right breast. New finding and increase in number of calcifications since July 06, 2021 and August 10, 2020. These results were verbally communicated with the patient and result sheet given to the patient on 07/17/21. ASSESSMENT: Incomplete: need additional imaging evaluation, BI-RAD 0 RECOMMENDATION: Ultrasound of both breasts.
--- NOTE | 2021-07-17 10:31 | USB ---
Reason for exam: additional evaluation requested from abnormal screening. History: Patient has history of high-risk lesion on a previous biopsy at age 50 and history of other cancer. Benign MG pre op needle loc RT of the right breast, September 27, 2020. High risk MG stereo VAD BX RT of the right breast, July 27, 2020. Took hormonal contraceptives for 4 years. US Breast Workup LIBERTAD Right complete breast ultrasound includes all four quadrants, the retroareolar region and axilla. Finding demonstrates a 0.6 x 0.5 x 0.3cm cystic lesion at 5 o'clock and a 0.8 x 1.0 x 0.5cm cystic lesion at 6 o'clock. Left complete breast ultrasound includes all four quadrants, the retroareolar region and axilla. Finding demonstrates a 0.8 x 0.6 x 0.5cm cystic, septated lesion at 6 o'clock and a 1.1 x 1.1 x 0.5cm lesion at the nipple. Benign thin walled cysts. These results were verbally communicated with the patient and result sheet given to the patient on 07/17/21. ASSESSMENT: Suspicious, BI-RAD 4 (based on mammogram) RECOMMENDATION: Surgical consultation of both breasts. (consider MRI and/or contrast enhanced mammography) Called office with mammographic findings and has scheduled an appointment for the patient for 07/20/21 at 4:[address] Ga. PRELIMINARY REPORT CALLED AND FAXED TO DR. GA ON 07/17/21.
== END | disposition home or self-care (01) ==
LOC: RADMAMWWP 08:27
PROVIDERS: ATTEND Surgery
DX: N60.02 Solitary cyst of left breast (principal); R92.1 Mammographic calcification found on diagnostic imaging of breast
CPT/HCPCS: 77062; 77066

== ENCOUNTER → 2021-07-20 | Outpatient (CLI) | payer OTHER ==
--- NOTE | 2021-07-20 16:58 | P.PN ---
Subjective Progress Note Date: 07/20/21 Principal diagnosis: Abnormal bilateral mammogram/ultrasound from 07-17-21 Margarita is a 51 -year-old white female seen in consultation for who had a screening mammogram performed revealing an area of microcalcification of concern in the right breast, a diagnostic right breast mammogram and ultrasound was subsequently performed on . This revealed an area of concern of group/clustered calcifications in the right breast. She does not feel any lesions of concern in either breast. She is not complaining of any pain, nipple discharge, or skin changes. She has not had any recent trauma or infection in the breast. She underwent a right breast stereotactic core biopsy on . This revealed a small intraductal papilloma. She then underwent a needle local excisional biopsy on . Pathology revealed 2 benign intraductal papillomas. The patient has been doing well since that time. She did have a right breast repeat mammogram in April 2021 and this was benign BIRADS 2. The patient then had a bilateral mammogram 07-10-21 at that time special view mammogram of both breasts and ultrasound of both breasts was recommended. These were subsequently performed on . On the bilateral mammogram the findings were at least 5-7 coarse heterogeneous group clustered calcifications in both breasts. There was excisional change in the right breast. This was felt to be a new finding with increasing number of calcifications; the patient then underwent a bilateral ultrasound. Right breast ultrasound revealed a 0.6 x 0.5 cm cystic lesion at 5:00 and a 0.8 x 0.5 cm cystic lesion at 6:00. Left breast ultrasound revealed a 0.8 x 0.5 cm cystic septated lesion at 6:00 and a 1.1 x 1.1 cm lesion at the nipple. These were felt to be benign thin- walled cysts. The assessment was suspicious BIRADS 4 and the recommendation was consider MRI and/or contrast enhanced mammography. The patient does not feel any lumps masses or nodules of concern in either breast. Caffeine: 1 pot of coffee/day nicotine: 1 pack per day Theophylline: every other day Hormones: Negative Family history: mother: cervical, and skin cancer father: skin cancer brother: leukemia T cell Hormonal History: menarche: 13 1 miscarriage, breast fed: yes, age at first : 22 periods regular, last period 1 week ago BCP: 5 years hormones: none Surgical History: right rotator cuff surgery tubal ligation basal cell removed from back Medical History: Narcolepsy Social history: Smoke: One pack per day/years Alcohol:none Drugs: Marijuana daily/relaxation - Constitutional Constitutional: Reports sweats - EENT Eyes: denies blurred vision, denies pain Ears: bilateral: decreased hearing, deny: tinnitus Ears, nose, mouth and throat: Reports headache - Breasts Breasts: bilateral: as per HPI - Cardiovascular Cardiovascular: Denies chest pain, Denies shortness of breath - Respiratory Comment: smoker/ bronchitis/ history of pneumonia in past - Gastrointestinal Gastrointestinal: Denies abdominal pain, Denies diarrhea, Denies nausea, Denies vomiting - Genitourinary (Female) Genitourinary: Denies dysuria, Denies hematuria - Menstruation Menstruation: Reports period normal - Musculoskeletal Musculoskeletal: Reports as per HPI - Integumentary Integumentary: Denies pruritus, Denies rash - Neurological Comment: Narcolepsy Neurological: Denies numbness, Denies weakness - Psychiatric Psychiatric: Reports anxiety, Reports depression - Endocrine Endocrine: Reports fatigue, Denies weight change - Hematologic/Lymphatic Comment: none - Allergic/Immunologic Allergic/Immunologic: Reports seasonal allergies Objective - Constitutional General appearance: Present: cooperative - EENT Eyes: Present: EOMI ENT: Present: hearing grossly normal - Neck Neck: Present: normal ROM - Respiratory Respiratory: bilateral: CTA - Cardiovascular Rhythm: regular Heart sounds: normal: S1, S2 - Integumentary Integumentary: Present: normal turgor - Musculoskeletal Musculoskeletal: Present: gait normal - Psychiatric Psychiatric: Present: A&O x's 3, appropriate affect, intact judgment & insight - Additional findings Additional findings: Breast exam: BRA: 32A Inspection: Bilateral grade 2 ptosis Palpation: Right breast: Positional exam no dominant masses or nodules of concern Right axilla: Positive shotty adenopathy Left breast: Multiple positional exam no dominant masses or nodules of concern Left axilla: Positive adenopathy approximately 1 cm in size Assessment and Plan Assessment: Impression: 1. Patient status post resection of intraductal papilloma 2. Patient with recent bilateral mammogram and ultrasound recommending further diagnostic workup of each breast 3. Bilateral adenopathy left greater than right Plan: 1. Review of radiographs with radiology 2. Patient to follow up next week to go over the results of the mammogram and further recommendation regarding the adenopathy in the left axilla cc: Dr. Smith
== END ==
LOC: WWCWWP 16:47
PROVIDERS: ATTEND Surgery
DX: R59.9 Enlarged lymph nodes, unspecified (principal); F17.210 Nicotine dependence, cigarettes, uncomplicated; Z98.890 Other specified postprocedural states

== ENCOUNTER → 2021-07-24 | Outpatient (CLI) | payer OTHER ==
--- NOTE | 2021-07-24 12:37 | USB ---
Reason for exam: clinical finding. History: Patient has history of high-risk lesion on a previous biopsy at age 50 and history of other cancer. Benign MG pre op needle loc RT of the right breast, September 27, 2020. High risk MG stereo VAD BX RT of the right breast, July 27, 2020. Took hormonal contraceptives for 4 years. Physical Findings: Breast exam performed 07/17/21. US Breast Axilla LT Right breast axilla ultrasound demonstrates a 0.7cm benign lymph node at the axilla. Left breast axilla ultrasound demonstrates a 0.6cm benign lymph node at the axilla. These results were verbally communicated with the patient and result sheet given to the patient on 07/24/21. ASSESSMENT: Benign, BI-RAD 2 RECOMMENDATION: Clinical management of both breasts.
--- NOTE | 2021-07-24 12:38 | USB ---
Reason for exam: clinical finding. History: Patient has history of high-risk lesion on a previous biopsy at age 50 and history of other cancer. Benign MG pre op needle loc RT of the right breast, September 27, 2020. High risk MG stereo VAD BX RT of the right breast, July 27, 2020. Took hormonal contraceptives for 4 years. Physical Findings: Breast exam performed on 07/17/21. US Breast Axilla RT Right breast axilla ultrasound demonstrates a 0.7cm benign lymph node at the axilla. Left breast axilla ultrasound demonstrates a 0.6cm benign lymph node at the axilla. These results were verbally communicated with the patient and result sheet given to the patient on 07/24/21. ASSESSMENT: Benign, BI-RAD 2 RECOMMENDATION: Clinical management of both breasts. Manage patient on a clinical basis.
== END | disposition home or self-care (01) ==
LOC: RADUSWWP 11:03
PROVIDERS: ATTEND Surgery
DX: N64.59 Other signs and symptoms in breast (principal)

== ENCOUNTER → 2021-08-01 | Outpatient (CLI) | payer OTHER | END | disposition home or self-care (01) | LOC: LABWHC1 12:41 | PROVIDERS: ATTEND Family Medicine | DX: U07.1 COVID-19 (principal); B34.9 Viral infection, unspecified | CPT/HCPCS: 87502; U0003; C9803 ==

== ENCOUNTER → 2021-08-29 | Outpatient (CLI) | payer OTHER | END | disposition home or self-care (01) | LOC: LABWHC1 11:36 | PROVIDERS: ATTEND Family Medicine | DX: Z20.822 Contact with and (suspected) exposure to COVID-19 (principal); R06.02 Shortness of breath; B34.9 Viral infection, unspecified | CPT/HCPCS: U0003; C9803 ==

== ENCOUNTER → 2021-10-05 | Outpatient (CLI) | payer OTHER ==
[2021-10-05 11:47] VITALS: BP 123/81; PULSE 68; RESP 18; TEMP 98.4
--- NOTE | 2021-10-05 12:12 | P.PN ---
Progress Note - Text Progress Note Date: 10/05/21 Subjective Progress Note Date: 07/20/21 Principal diagnosis: Abnormal bilateral mammogram/ultrasound from 07-17-21 Margarita is a 51 -year-old white female seen in consultation for who had a screening mammogram performed revealing an area of microcalcification of concern in the right breast, a diagnostic right breast mammogram and ultrasound was subsequently performed on . This revealed an area of concern of group/clustered calcifications in the right breast. She does not feel any lesions of concern in either breast. She is not complaining of any pain, nipple discharge, or skin changes. She has not had any recent trauma or infection in the breast. She underwent a right breast stereotactic core biopsy on . This revealed a small intraductal papilloma. She then underwent a needle local ex cisional biopsy on . Pathology revealed 2 benign intraductal papillomas. The patient has been doing well since that time. She did have a right breast repeat mammogram in April 2021 and this was benign BIRADS 2. The patient then had a bilateral mammogram 07-10-21 at that time special view mammogram of both breasts and ultrasound of both breasts was recommended. These were subsequently performed on . On the bilateral mammogram the findings were at least 5-7 coarse heterogeneous group clustered calcifications in both breasts. There was excisional change in the right breast. This was felt to be a new finding with increasing number of calcifications; the patient then underwent a bilateral ultrasound. Right breast ultrasound revealed a 0.6 x 0.5 cm cystic lesion at 5:00 and a 0.8 x 0.5 cm cystic lesion at 6:00. Left breast ultrasound revealed a 0.8 x 0.5 cm cystic septated lesion at 6:00 and a 1.1 x 1.1 cm lesion at the nipple. These were felt to be benign thin-walled cysts. The assessment was suspicious BIRADS 4 and the recommendation was consider MRI and/or contrast enhanced mammography. The patient does not feel any lumps masses or nodules of concern in either breast. 07-24-21 patient's mammogram of 07-17-[address] Joyce, at this time it is felt that the axilla are benign and can be followed conservatively. The patient's mammogram of 07-17-21 however have increasing calcifications and bilateral breast MRI I recommended. If this cannot be performed secondary to insurance a contrast enhanced mammogram is recommended of both breasts. If this is not possible consideration for stereotactic core biopsy of both breast are recommended. I have called the patient with this information. We've also talked about possible bilateral prophylactic mastectomy. The patient understands this and is willing to proceed with what is necessary to assure her breast on adequately surveillance. Bilateral axillary ultrasound and [id number] was benign BIRADS 2. Addendum entered and electronically signed by Julia Ga MD 07/20/21 17:02: Patient will obtain bilateral axillary ultrasound and follow up. 10-05-21 Melissa had a left axillary ultrasound performed on [id number]. This was felt to be benign BIRADS 2 she has not noted any changes in either axilla Bilateral breast MRI was performed on 1220 721 this did not show any evidence of malignancy in either breast At this time the patient is not complaining of any changes in either breast for which she is concerned nor under either arm Caffeine: 1 pot of coffee/day nicotine: 1 pack per day Theophylline: every other day Hormones: Negative Family history: mother: cervical, and skin cancer father: skin cancer brother: leukemia T cell Hormonal History: menarche: 13 1 miscarriage, breast fed: yes, age at first : 22 periods regular, last period 1 week ago BCP: 5 years hormones: none Surgical History: right rotator cuff surgery tubal ligation basal cell removed from back Medical History: Narcolepsy Social history: Smoke: One pack per day/years Alcohol:none Drugs: Marijuana daily/relaxation - Constitutional Constitutional: Reports sweats - EENT Eyes: denies blurred vision, denies pain Ears: bilateral: decreased hearing, deny: tinnitus Ears, nose, mouth and throat: Reports headache - Breasts Breasts: bilateral: as per HPI - Cardiovascular Cardiovascular: Denies chest pain, Denies shortness of breath - Respiratory Comment: smoker/ bronchitis/ history of pneumonia in past - Gastrointestinal Gastrointestinal: Denies abdominal pain, Denies diarrhea, Denies nausea, Denies vomiting - Genitourinary (Female) Genitourinary: Denies dysuria, Denies hematuria - Menstruation Menstruation: Reports period normal - Musculoskeletal Musculoskeletal: Reports as per HPI - Integumentary Integumentary: Denies pruritus, Denies rash - Neurological Comment: Narcolepsy Neurological: Denies numbness, Denies weakness - Psychiatric Psychiatric: Reports anxiety, Reports depression - Endocrine Endocrine: Reports fatigue, Denies weight change - Hematologic/Lymphatic Comment: none - Allergic/Immunologic Allergic/Immunologic: Reports seasonal allergies Physical Exam: Lungs: clear heart: S1S2 Abdomen: soft Breast Exam: Bra: 32A Right breast: POSITIONAL exam fibrocystic changes Right axilla: No adenopathy of concern Left breast: Multiple positional exam fibrocystic changes, no dominant masses or nodules of concern Left axilla: No adenopathy of concern Impression: Fibrocystic breast changes Recent breast MRI bilateral no lesions of concern Plan: Close surveillance of the breast and axilla was plan repeat physician exam in 6 months Bilateral mammogram in June with physician exam at that time Patient will call sooner if any questions or concerns CC: DR. Smith
== END ==
LOC: WWCWWP 10:59
PROVIDERS: ATTEND Surgery
DX: N60.11 Diffuse cystic mastopathy of right breast (principal); N60.12 Diffuse cystic mastopathy of left breast; F17.210 Nicotine dependence, cigarettes, uncomplicated

== ENCOUNTER → 2022-01-23 | Outpatient (CLI) | payer OTHER ==
[2022-01-23 21:33] LABS: Anti-Smith Ab Interp NEGATIVE (NEGATIVE)
== END | disposition home or self-care (01) ==
LOC: LABWHC1 12:06
PROVIDERS: ATTEND Internal Medicine Critical Care Medicine
DX: M25.50 Pain in unspecified joint (principal)
CPT/HCPCS: 36415; 85652; 86038; 86140; 86235; 86431

== ENCOUNTER → 2022-01-23 | Outpatient (CLI) | payer OTHER ==
--- NOTE | 2022-01-23 14:46 | CT ---
EXAMINATION TYPE: CT abdomen pelvis wo con DATE OF EXAM: 01/23/2022 HISTORY: nephrolithiasis CT DLP: 236.5 mGycm. Automated Exposure Control for Dose Reduction was Utilized. TECHNIQUE: CT scan of the abdomen and pelvis is performed without oral or IV contrast. COMPARISON: CT abdomen and pelvis February 23, 2021 FINDINGS: Within the limitations of a non-contrast study, the following observations are made. LUNG BASES: No significant abnormality is appreciated. LIVER/GB: Hepatomegaly redemonstrated. PANCREAS: No significant abnormality is seen. SPLEEN: No significant abnormality is seen. ADRENALS: No significant abnormality is seen. KIDNEYS: No renal calculi or hydronephrosis seen bilaterally. Small thin-walled cyst upper pole right kidney less well seen without contrast on this study versus prior. BOWEL: Evaluation suboptimal due to lack of enteric contrast and patient having little intra-abdomina l fat. No suspicious small or large bowel dilatation is seen. Low-lying cecum into the right pelvis i s present. Moderate fecal material in the right and transverse colon is seen. GENITAL ORGANS: Anteverted uterus. Left-sided tubal ligation clips redemonstrated similar in appearan ce to prior. LYMPH NODES: No greater than 1cm abdominal or pelvic lymph nodes are appreciated. OSSEOUS STRUCTURES: There are sacralized L5 segment bilaterally redemonstrated. There is persistent m [id number] disc space narrowing and anterior spurring at the L4-L5 level. OTHER: No significant additional abnormality is seen. IMPRESSION: 1. No new renal stones or hydronephrosis is seen bilaterally. 2. Overall nonobstructive bowel gas pattern. Moderate proximal to mid colonic fecal stasis is however now present. Correlate clinically for constipation.
== END | disposition home or self-care (01) ==
LOC: RADCTMAIN 11:46
PROVIDERS: ATTEND Family Medicine
DX: R19.5 Other fecal abnormalities (principal)
CPT/HCPCS: 74176

== ENCOUNTER → 2022-06-26 | Outpatient (CLI) | payer OTHER ==
--- NOTE | 2022-06-26 14:28 | MM ---
Reason for Exam: Additional evaluation requested from prior study. Last screening mammogram was performed 11 month(s) ago. Patient History: Menarche at age 13. First Full-Term at age 22. Patient used Hormonal Contraceptives for 4 years. 09/27/2020, Benign Core Biopsy on the right side. 07/27/2020, High risk Core Biopsy on the right side. Last menstrual period: 06/07/2022 Risk Values: Caryn 5 year model risk: 1.4%. NCI Lifetime model risk: 12.9%. Prior Study Comparison: 05/01/2017 Bilateral Screening Mammogram, [facility]. 07/04/2020 Bilateral Screening Mammogram, [facility]. 07/10/2020 Right Diagnostic Mammogram, [facility]. 07/10/2020 Right Diagnostic Ultrasound, [facility]. 08/10/2020 Right Diagnostic Mammogram, [facility]. 04/13/2021 Right Diagnostic Mammogram, [facility]. 07/06/2021 Bilateral Screening Mammogram, [facility]. 07/17/2021 Bilateral Diagnostic Mammogram, [facility]. 07/17/2021 Bilateral Diagnostic Ultrasound, [facility]. 07/24/2021 Left Diagnostic Ultrasound, [facility]. 07/24/2021 Right Diagnostic Ultrasound, [facility]. Tissue Density: The breast tissue is extremely dense which could obscure a lesion on mammography. Findings: Analyzed By CAD. No new suspicious mass within either breast. Chronic nodularity within the right breast. Postsurgical changes of the right breast. Relatively stable bilateral grouped and regional punctate calcifications. Overall Assessment: Probably benign, BI-RAD 3 Management: Diagnostic Mammogram of both breasts in 6 months. A clinical breast exam by your physician is recommended on an annual basis and results should be correlated with mammographic findings. This exam should not preclude additional follow-up of suspicious palpable abnormalities. Results were given to the patient verbally at the time of exam. Electronically signed and approved by: Shree Iraheta D.O.
--- NOTE | 2022-06-26 14:28 | MM ---
Reason for Exam: Additional evaluation requested from prior study. Last screening mammogram was performed 11 month(s) ago. Patient History: Menarche at age 13. First Full-Term at age 22. Patient used Hormonal Contraceptives for 4 years. 09/27/2020, Benign Core Biopsy on the right side. 07/27/2020, High risk Core Biopsy on the right side. Last menstrual period: 06/07/2022 Risk Values: Caryn 5 year model risk: 1.4%. NCI Lifetime model risk: 12.9%. Prior Study Comparison: 05/01/2017 Bilateral Screening Mammogram, [facility]. 07/04/2020 Bilateral Screening Mammogram, [facility]. 07/10/2020 Right Diagnostic Mammogram, [facility]. 07/10/2020 Right Diagnostic Ultrasound, [facility]. 08/10/2020 Right Diagnostic Mammogram, [facility]. 04/13/2021 Right Diagnostic Mammogram, [facility]. 07/06/2021 Bilateral Screening Mammogram, [facility]. 07/17/2021 Bilateral Diagnostic Mammogram, [facility]. 07/17/2021 Bilateral Diagnostic Ultrasound, [facility]. 07/24/2021 Left Diagnostic Ultrasound, [facility]. 07/24/2021 Right Diagnostic Ultrasound, [facility]. Tissue Density: The breast tissue is extremely dense which could obscure a lesion on mammography. Findings: Analyzed By CAD. No new suspicious mass within either breast. Chronic nodularity within the right breast. Postsurgical changes of the right breast. Relatively stable bilateral grouped and regional punctate calcifications. Overall Assessment: Probably benign, BI-RAD 3 Management: Diagnostic Mammogram of both breasts in 6 months. A clinical breast exam by your physician is recommended on an annual basis and results should be correlated with mammographic findings. This exam should not preclude additional follow-up of suspicious palpable abnormalities. Results were given to the patient verbally at the time of exam. Electronically signed and approved by: Shree Iraheta D.O.
== END | disposition home or self-care (01) ==
LOC: RADMAMWWP 13:01
PROVIDERS: ATTEND Surgery
DX: R92.8 Other abnormal and inconclusive findings on diagnostic imaging of breast (principal)
CPT/HCPCS: 77062; 77066

== ENCOUNTER → 2022-06-28 | Outpatient (CLI) | payer OTHER ==
[2022-06-28 14:49] VITALS: BP 135/81; PULSE 81; RESP 16
--- NOTE | 2022-06-28 15:44 | P.PN ---
Subjective Progress Note Date: 06/28/22 Principal diagnosis: fibrocysitc breast disease Abnormal bilateral mammogram/ultrasound from 07-17-21 Margarita is a 51 -year-old white female seen in consultation for who had a screening mammogram performed revealing an area of microcalcification of concern in the right breast, a diagnostic right breast mammogram and ultrasound was subsequently performed on . This revealed an area of concern of group/clustered calcifications in the right breast. She does not feel any lesions of concern in either breast. She is not complaining of any pain, nipple discharge, or skin changes. She has not had any recent trauma or infection in the breast. She underwent a right breast stereotactic core biopsy on . This revealed a small intraductal papilloma. She then underwent a needle local excisional biopsy on . Pathology revealed 2 benign intraductal papillomas. The patient has been doing well since that time. She did have a right breast repeat mammogram in April 2021 and this was benign BIRADS 2. The patient then had a bilateral mammogram 07-10-21 at that time special view mammogram of both breasts and ultrasound of both breasts was recommended. These were subsequently performed on . On the bilateral mammogram the findings were at least 5-7 coarse heterogeneous group clustered calcifications in both breasts. There was excisional change in the right breast. This was felt to be a new finding with increasing number of calcifications; the patient then underwent a bilateral ultrasound. Right breast ultrasound revealed a 0.6 x 0.5 cm cystic lesion at 5:00 and a 0.8 x 0.5 cm cystic lesion at 6:00. Left breast ultrasound revealed a 0.8 x 0.5 cm cystic septated lesion at 6:00 and a 1.1 x 1.1 cm lesion at the nipple. These were felt to be benign thin- walled cysts. The assessment was suspicious BIRADS 4 and the recommendation was consider MRI and/or contrast enhanced mammography. The patient does not feel any lumps masses or nodules of concern in either breast. 07-24-21 patient's mammogram of 07-17-[address] Joyce, at this time it is felt that the axilla are benign and can be followed conservatively. The patient's mammogram of 07-17-21 however have increasing calcifications and bilateral breast MRI I recommended. If this cannot be performed secondary to insurance a contrast enhanced mammogram is recommended of both breasts. If this is not possible consideration for stereotactic core biopsy of both breast are recommended. I have called the patient with this information. We've also talked about possible bilateral prophylactic mastectomy. The patient understands this and is willing to proceed with what is necessary to assure her breast on adequately surveillance. Bilateral axillary ultrasound and [id number] was benign BIRADS 2. Addendum entered and electronically signed by Julia Ga MD 07/20/21 17:02: Patient will obtain bilateral axillary ultrasound and follow up. 10-05-21 Melissa had a left axillary ultrasound performed on [id number]. This was felt to be benign BIRADS 2 she has not noted any changes in either axilla Bilateral breast MRI was performed on [id number] this did not show any evidence of malignancy in either breast At this time the patient is not complaining of any changes in either breast for which she is concerned nor under either arm 06-29-22 Margarita had a bilateral mammogram on 06-26-22 which was BIRAD 3. Repeat bilateral mammogram in 6 months recommended. The patient does not feel any new lumps masses or nodules of concern in her breast. She does have some right axillary adenopathy and is complaining of some right sub-tubular adenopathy. She is a smoker. Caffeine: 1 pot of coffee/day nicotine: 1 pack per day Theophylline: every other day Hormones: Negative Family history: mother: cervical, and skin cancer father: skin cancer brother: leukemia T cell Hormonal History: menarche: 13 1 miscarriage, breast fed: yes, age at first : 22 periods regular, last period 1 week ago BCP: 5 years hormones: none Surgical History: right rotator cuff surgery tubal ligation basal cell removed from back Medical History: Narcolepsy Social history: Smoke: One pack per day/years Alcohol:none Drugs: Marijuana daily/relaxation - Constitutional Constitutional: Reports sweats - EENT Eyes: denies blurred vision, denies pain Ears: bilateral: decreased hearing, deny: tinnitus Ears, nose, mouth and throat: Reports headache - Breasts Breasts: bilateral: as per HPI - Cardiovascular Cardiovascular: Denies chest pain, Denies shortness of breath - Respiratory Comment: smoker/ bronchitis/ history of pneumonia in past - Gastrointestinal Gastrointestinal: Denies abdominal pain, Denies diarrhea, Denies nausea, Denies vomiting - Genitourinary (Female) Genitourinary: Denies dysuria, Denies hematuria - Menstruation Menstruation: Reports period normal - Musculoskeletal Musculoskeletal: Reports as per HPI - Integumentary Integumentary: Denies pruritus, Denies rash - Neurological Comment: Narcolepsy Neurological: Denies numbness, Denies weakness - Psychiatric Psychiatric: Reports anxiety, Reports depression - Endocrine Endocrine: Reports fatigue, Denies weight change - Hematologic/Lymphatic Comment: none - Allergic/Immunologic Allergic/Immunologic: Reports seasonal allergies Objective - Vital Signs Vital signs: Vital Signs Temp Pulse 81 06/28/22 14:42 Resp 16 06/28/22 14:42 BP 135/81 06/28/22 14:42 Pulse Ox 98 06/28/22 14:42 FiO2 Intake & Output 06/27/22 06/28/22 06/28/22 18:59 06:59 18:59 Weight 64.41 kg - Constitutional General appearance: Present: cooperative - EENT Eyes: Present: EOMI ENT: Present: hearing grossly normal - Neck Details: Adenopathy right submandibular area Neck: Present: normal ROM - Respiratory Details: wheezing left base Respiratory: right: CTA - Cardiovascular Heart sounds: normal: S1, S2 - Gastrointestinal General gastrointestinal: Present: soft - Integumentary Integumentary: Present: normal turgor - Musculoskeletal Musculoskeletal: Present: gait normal - Psychiatric Psychiatric: Present: A&O x's 3, appropriate affect, intact judgment & insight - Additional findings Additional findings: Breast Exam: Bra: 32A Right breast: multipositional exam fibrocystic changes Right axilla: shoddy adenopathy Left breast: Multiple positional exam fibrocystic changes, no dominant masses or nodules of concern Left axilla: No adenopathy of concern Mid submandibular area on the right reveals questionable adenopathy versus prominent hyoid bone on that side No other supraclavicular adenopathy. Assessment and Plan Assessment: Impression: Fibrocystic breast disease Adenopathy right submandibular area Plan: Bilateral mammogram in 6 months with physician exam at that time recommend appointment with ENT for cervical adenopathy CC: Dr. Smith
== END | disposition home or self-care (01) ==
LOC: WWCWWP 14:37
PROVIDERS: ATTEND Surgery
DX: Z53.9 Procedure and treatment not carried out, unspecified reason (principal)

== ENCOUNTER → 2022-12-26 | Outpatient (CLI) | payer OTHER ==
--- NOTE | 2022-12-26 11:42 | MM ---
Reason for Exam: Follow-up at short interval from prior study. Last screening mammogram was performed 6 month(s) ago. Patient History: Menarche at age 13. First Full-Term at age 22. Patient used Hormonal Contraceptives for 4 years. 2020, Excisional Biopsy on the Right side. 09/27/2020, Benign Core Biopsy on the right side. 07/27/2020, High risk Core Biopsy on the right side. Last menstrual period: 12/18/2022 Risk Values: Caryn 5 year model risk: 1.4%. NCI Lifetime model risk: 12.9%. Tissue Density: The breast tissue is extremely dense which could obscure a lesion on mammography. Findings: Analyzed By CAD. No new suspicious masses in either breast. Chronic nodularity within the right breast is stable. Postsurgical change of the right breast. Stable bilateral grouped and regional punctate calcifications within both breasts. Overall Assessment: Benign, BI-RAD 2 Management: Diagnostic Mammogram of both breasts in 1 year. A clinical breast exam by your physician is recommended on an annual basis and results should be correlated with mammographic findings. This exam should not preclude additional follow-up of suspicious palpable abnormalities. Results were given to the patient verbally at the time of exam. Electronically signed and approved by: Shree Iraheta D.O.
--- NOTE | 2022-12-26 12:11 | P.PN ---
Subjective Progress Note Date: 12/26/22 Principal diagnosis: fibrocystic breast disease fibrocysitc breast disease 12-26-22 Margarita is a 52-year-old white female seen in consultation initially for Dr. Coffey in 2019 who was noted on a screening mammogram performed in the fall of 2019 to have an area of concern group/clustered calcifications in the right breast. She did not feel any lesions of concern in either breast and subsequently underwent a right breast stereotactic core biopsy on . This revealed a small intraductal papilloma. She then underwent a needle local excisional biopsy on . Pathology revealed 2 benign intraductal papillomas. Following this she underwent a bilateral mammogram on which revealed clustered calcifications in both breasts. There were excisional biopsy changes in the right breast. These were felt to be a new finding and the patient underwent a bilateral ultrasound. After the ultrasound it was recommended that an MRI or contrast enhanced mammogram be performed. The patient underwent a bilateral breast MRI 09-03-21 which did not show any evidence of malignancy. Most recently she has undergone a bilateral mammogram on 12-26-22 which was BIRADS 2. Patient is not complaining of any new lumps masses or nodules of concern in either breast. Caryn Risk 5 year: 1.4% Caffeine: 1 pot of coffee/day nicotine: 1 pack per day Theophylline: every other day Hormones: Negative Family history: mother: cervical, and skin cancer father: skin cancer brother: leukemia T cell Hormonal History: menarche: 13 1 miscarriage, breast fed: yes, age at first : 22 periods regular, last period 1 week ago BCP: 5 years hormones: none Surgical History: right rotator cuff surgery tubal ligation basal cell removed from back Medical History: Narcolepsy Social history: Smoke: One pack per day/years Alcohol:none Drugs: Marijuana daily/relaxation - Constitutional Constitutional: Reports sweats - EENT Eyes: denies blurred vision, denies pain Ears: bilateral: decreased hearing, deny: tinnitus Ears, nose, mouth and throat: Reports headache - Breasts Breasts: bilateral: as per HPI - Cardiovascular Cardiovascular: Denies chest pain, Denies shortness of breath - Respiratory Comment: smoker/ bronchitis/ history of pneumonia in past - Gastrointestinal Gastrointestinal: Denies abdominal pain, Denies diarrhea, Denies nausea, Denies vomiting - Genitourinary (Female) Genitourinary: Denies dysuria, Denies hematuria - Menstruation Menstruation: Reports period normal - Musculoskeletal Musculoskeletal: Reports as per HPI - Integumentary Integumentary: Denies pruritus, Denies rash - Neurological Comment: Narcolepsy Neurological: Denies numbness, Denies weakness - Psychiatric Psychiatric: Reports anxiety, Reports depression - Endocrine Endocrine: Reports fatigue, Denies weight change - Hematologic/Lymphatic Comment: none - Allergic/Immunologic Allergic/Immunologic: Reports seasonal allergies Objective - Constitutional General appearance: Present: cooperative - EENT Eyes: Present: EOMI ENT: Present: hearing grossly normal - Neck Neck: Present: normal ROM - Respiratory Respiratory: bilateral: CTA - Cardiovascular Rhythm: regular Heart sounds: normal: S1, S2 - Gastrointestinal General gastrointestinal: Present: soft - Integumentary Integumentary: Present: normal turgor - Musculoskeletal Musculoskeletal: Present: gait normal - Psychiatric Psychiatric: Present: A&O x's 3, appropriate affect, intact judgment & insight - Additional findings Additional findings: Bra: 32A Inspection: Bilateral grade 1 ptosis Palpation: Right breast: multipositional exam fibrocystic changes Right axilla: shoddy adenopathy Left breast: Multiple positional exam fibrocystic changes, no dominant masses or nodules of concern Left axilla: No adenopathy of concern Mid submandibular area on the right reveals questionable adenopathy versus prominent hyoid bone on that side No other supraclavicular adenopathy. This was noted on prior exam, she has followed with Dr. Chadwick and he is following her for this. Assessment and Plan Assessment: Assessment and Plan Assessment: Impression: Fibrocystic breast disease; mammogram [id number] benign BIRADS 2 Adenopathy right submandibular area; followed by Dr. Martinez Plan: 6 months physician exam of the breast Continue follow-up with Dr. Martinez Recommend stopping smoking CC: Lawanda Carson
== END | disposition home or self-care (01) ==
LOC: RADMAMWWP 11:08
PROVIDERS: ATTEND Surgery
DX: R92.1 Mammographic calcification found on diagnostic imaging of breast (principal); R92.8 Other abnormal and inconclusive findings on diagnostic imaging of breast; N60.11 Diffuse cystic mastopathy of right breast; N60.12 Diffuse cystic mastopathy of left breast
CPT/HCPCS: 77062; 77066

== ENCOUNTER → 2022-12-26 | Outpatient (CLI) | payer OTHER ==
[2022-12-26 11:55] VITALS: BP 131/73; PULSE 79; RESP 17; TEMP 98
== END ==
LOC: WWCWWP 11:10
PROVIDERS: ATTEND Surgery
DX: Z53.9 Procedure and treatment not carried out, unspecified reason (principal)

== ENCOUNTER → 2023-01-08 | Outpatient (CLI) | payer OTHER ==
--- NOTE | 2023-01-08 16:22 | US ---
EXAMINATION TYPE: US thyroid st tissue head/neck DATE OF EXAM: 01/08/2023 COMPARISON: NONE CLINICAL INDICATION: Female, 52 years old with history of E04.1 thyroid nodule; nodule seen on CT GLAND SIZE: Right Lobe: 3.6 x 1.3 x 2.2 cm Overall Parenchyma: heterogenous Left Lobe: 3.5 x 0.2 x 1.2 cm Overall Parenchyma: heterogenous Isthmus Thickness: 0.1 cm NODULES RIGHT: # of nodules measured on right: 0 LEFT: # of nodules measured on left: 1. 0.7 X 0.6 x 0.4 cm, lower , solid or almost completely solid, though partially cystic, hypoechoi c TR4 nodule, which is wider than tall, with smooth margins, without echogenic foci. Prior size: [employer] ISTHMUS: # of nodules measured in the isthmus: 1 - rt sided 1. 0.8 X 0.6 x 0.4 cm right-sided solid or almost completely solid, hypoechoic TR 4 nodule, which i s wider than tall, with smooth margins, without echogenic foci. Prior size: [employer] Bilateral neck scanned, no evidence of lymphadenopathy. IMPRESSION: A few nodules, the largest is a TR 4 nodule in the left lower pole measuring 7 mm and an 8 mm TR4 nod ule in the right thyroid isthmus. These can be followed. FNA if they reach 1.5 cm.
== END | disposition home or self-care (01) ==
LOC: RADUSWWP 14:24
PROVIDERS: ATTEND Otolaryngology
DX: E04.1 Nontoxic single thyroid nodule (principal)
CPT/HCPCS: 76536

== ENCOUNTER → 2023-12-29 | Outpatient (CLI) | payer OTHER ==
--- NOTE | 2023-12-29 09:54 | MM ---
Reason for Exam: Follow-up at short interval from prior study. Last screening mammogram was performed 12 month(s) ago. Patient History: Menarche at age 13. First Full-Term at age 22. Patient has history of breast feeding. Patient used Hormonal Contraceptives for 4 years. 2020, Excisional Biopsy on the Right side. 09/27/2020, Benign Core Biopsy on the right side. 07/27/2020, High risk Core Biopsy on the right side. Risk Values: Caryn 5 year model risk: 1.5%. NCI Lifetime model risk: 12.7%. Prior Study Comparison: 05/01/2017 Bilateral Screening Mammogram, [facility]. 07/04/2020 Bilateral Screening Mammogram, [facility]. 07/10/2020 Right Diagnostic Mammogram, [facility]. 07/10/2020 Right Diagnostic Ultrasound, [facility]. 08/10/2020 Right Diagnostic Mammogram, [facility]. 04/13/2021 Right Diagnostic Mammogram, [facility]. 07/06/2021 Bilateral Screening Mammogram, [facility]. 07/17/2021 Bilateral Diagnostic Mammogram, [facility]. 07/17/2021 Bilateral Diagnostic Ultrasound, [facility]. 07/24/2021 Left Diagnostic Ultrasound, [facility]. 07/24/2021 Right Diagnostic Ultrasound, [facility]. 06/26/2022 Bilateral MG 3D diag mammo w/cad [facility], [facility]. 12/26/2022 Bilateral MG 3D diag mammo w/cad [facility], [facility]. Tissue Density: The breasts are heterogeneously dense, which may obscure small masses. Findings: Analyzed By CAD. Waxing and waning nodularity seen within both breasts consistent with cysts..Scattered benign appearing calcifications. No suspicious microcalcifications seen. Postoperative right-sided breast clips in place. Managed clinically. Overall Assessment: Benign, BI-RAD 2 Management: Screening Mammogram of both breasts in 1 year. . Results were given to the patient verbally at the time of exam. Patient should continue monthly self-breast exams. A clinical breast exam by your physician is recommended on an annual basis. This exam should not preclude additional follow-up of suspicious palpable abnormalities. Note on Caryn scores and lifetime risk: 1. A Caryn score greater than 3% is considered moderate risk. If this is the case, consider specialist referral to assess eligibility for a risk reducing agent. 2. If overall lifetime risk for the development of breast cancer is 20% or higher, the patient may qualify for future screening with alternating mammogram and breast MRI. Electronically signed and approved by: Donte Diaz M.D. Radiologis
== END | disposition home or self-care (01) ==
LOC: RADMAMWWP 09:25
PROVIDERS: ATTEND Surgery
DX: R92.333 Mammographic heterogeneous density, bilateral breasts (principal)
CPT/HCPCS: 77066; G0279; 77062

== ENCOUNTER → 2024-01-01 | Outpatient (CLI) | payer OTHER ==
--- NOTE | 2024-01-01 11:19 | P.PN ---
Subjective Progress Note Date: 01/01/24 Subjective Progress Note Date: 12/26/22 Principal diagnosis: fibrocystic breast disease Margarita is a 53-year-old white female seen in consultation initially for Dr. Coffey in 2019 who was noted on a screening mammogram performed in the fall of 2019 to have an area of concern group/clustered calcifications in the right breast. She did not feel any lesions of concern in either breast and subsequently underwent a right breast stereotactic core biopsy on . This revealed a small intraductal papilloma. She then underwent a needle local excisional biopsy on . Pathology revealed 2 benign intraductal papillomas. Following this she underwent a bilateral mammogram on which revealed clustered calcifications in both breasts. There were excisional biopsy changes in the right breast. These were felt to be a new finding and the patient underwent a bilateral ultrasound. After the ultrasound it was recommended that an MRI or contrast enhanced mammogram be performed. The patient underwent a bilateral breast MRI 09-03-21 which did not show any evidence of malignancy. The patient has had intermittent right axillary swelling which she does not have at this time. She is not complaining of any fever or chills. She has not had any biopsy of the submandibular lymph node and has followed with ENT for this. She states it has not changed. She had a bilateral mammogram on which was personally reviewed and BIRAD 2 Patient is not complaining of any new lumps masses or nodules of concern in either breast. Caryn Risk 5 year: 1.5% lifetime risk: 12.7% Caffeine: 1 pot of coffee/day nicotine: 1 pack per day Theophylline: every other day Hormones: Negative Family history: mother: cervical, and skin cancer father: skin cancer brother: leukemia T cell Hormonal History: menarche: 13 1 miscarriage, breast fed: yes, age at first : 22 periods regular, last period 1 week ago BCP: 5 years hormones: none Surgical History: right rotator cuff surgery tubal ligation basal cell removed from back Medical History: Narcolepsy Social history: Smoke: One pack per day/years Alcohol:none Drugs: Marijuana daily/relaxation - Constitutional Constitutional: Reports sweats - EENT Eyes: denies blurred vision, denies pain Ears: bilateral: decreased hearing, deny: tinnitus Ears, nose, mouth and throat: Reports headache - Breasts Breasts: bilateral: as per HPI - Cardiovascular Cardiovascular: Denies chest pain, Denies shortness of breath - Respiratory Comment: smoker/ bronchitis/ history of pneumonia in past - Gastrointestinal Gastrointestinal: Denies abdominal pain, Denies diarrhea, Denies nausea, Denies vomiting - Genitourinary (Female) Genitourinary: Denies dysuria, Denies hematuria - Menstruation Menstruation: Reports period normal - Musculoskeletal Musculoskeletal: Reports as per HPI - Integumentary Integumentary: Denies pruritus, Denies rash - Neurological Comment: Narcolepsy Neurological: Denies numbness, Denies weakness - Psychiatric Psychiatric: Reports anxiety, Reports depression - Endocrine Endocrine: Reports fatigue, Denies weight change - Hematologic/Lymphatic Comment: none - Allergic/Immunologic Allergic/Immunologic: Reports seasonal allergies Objective - Vital Signs Vital signs: Vital Signs Temp 97.7 F 01/01/24 11:05 Pulse 82 01/01/24 11:05 Resp 17 01/01/24 11:05 BP 128/82 01/01/24 11:05 Pulse Ox 96 01/01/24 11:05 FiO2 Intake & Output 12/31/23 01/01/24 01/01/24 18:59 06:59 18:59 Weight 60.781 kg - Constitutional General appearance: Present: cooperative - EENT Eyes: Present: EOMI ENT: Present: hearing grossly normal - Neck Neck: Present: normal ROM - Respiratory Respiratory: bilateral: CTA - Cardiovascular Rhythm: regular Heart sounds: normal: S1, S2 - Gastrointestinal General gastrointestinal: Present: soft - Integumentary Integumentary: Present: normal turgor - Musculoskeletal Musculoskeletal: Present: gait normal - Psychiatric Psychiatric: Present: A&O x's 3, appropriate affect, intact judgment & insight - Additional findings Additional findings: Bra: 32A Inspection: Bilateral grade 1 ptosis Palpation: Right breast: multi-positional exam fibrocystic changes Right axilla: Axillary adenopathy 1 specific node noted greater than the others Left breast: Multiple positional exam fibrocystic changes, no dominant masses or nodules of concern Left axilla: Shotty adenopathy Mid submandibular area on the right reveals small area of nodularity told that this was a salivary gland by ENT No other supraclavicular adenopathy. she has followed with Dr. Chadwick and he is following her for this. No cervical adenopathy of concern no groin adenopathy of concern The liver and spleen are not enlarged. Assessment and Plan Assessment: Impression: Fibrocystic breast disease; mammogram [id number] benign BIRADS 2 Adenopathy left submandibular area; followed by Dr. Martinez, told a salivary gland Plan: bilateral mammogram in 1 year with appointment at that time Continue follow-up with Dr. Martinez Recommend stopping smoking Bilateral axillary ultrasound follow-up after this is done secondary to palpable axillary adenopathy greater on the right than the left CC: Lawanda Carson
[2024-01-01 11:43] VITALS: BP 128/82; PULSE 82; RESP 17; TEMP 97.7
== END ==
LOC: WWCWWP 10:50
PROVIDERS: ATTEND Surgery
DX: R92.8 Other abnormal and inconclusive findings on diagnostic imaging of breast (principal); N60.11 Diffuse cystic mastopathy of right breast; N60.12 Diffuse cystic mastopathy of left breast; R92.1 Mammographic calcification found on diagnostic imaging of breast; D24.1 Benign neoplasm of right breast; R59.0 Localized enlarged lymph nodes; D24.2 Benign neoplasm of left breast; F17.210 Nicotine dependence, cigarettes, uncomplicated; Z98.51 Tubal ligation status; Z88.8 Allergy status to other drugs, medicaments and biological substances

== ENCOUNTER → 2024-01-06 | Outpatient (CLI) | payer OTHER ==
--- NOTE | 2024-01-06 10:52 | USB ---
Reason for Exam: Clinical finding. Patient History: Menarche at age 13. First Full-Term at age 22. Patient has history of breast feeding. Patient used Hormonal Contraceptives for 4 years. 2020, Excisional Biopsy on the Right side. 09/27/2020, Benign Core Biopsy on the right side. 07/27/2020, High risk Core Biopsy on the right side. Risk Values: Caryn 5 year model risk: 1.5%. NCI Lifetime model risk: 12.7%. Technique: Method: Targeted. Prior Study Comparison: 06/26/2022 Bilateral MG 3D diag mammo w/cad [facility], [facility]. 12/26/2022 Bilateral MG 3D diag mammo w/cad [facility], [facility]. 12/29/2023 Bilateral MG 3D diag mammo w/cad [facility], [facility]. Findings: The axilla of the left breast was scanned. There are several small lymph nodes present within the left axillary region. No suspicious thickened cortex is evident. No suspicious enlarged lymphadenopathy evident.. Overall Assessment: Benign, BI-RAD 2 Management: Screening Mammogram of both breasts in 1 year. Diagnostic Breast Ultrasound of the right breast in 6 months. A clinical breast exam by your physician is recommended on an annual basis and results should be correlated with mammographic findings. This exam should not preclude additional follow-up of suspicious palpable abnormalities. Results were given to the patient verbally at the time of exam. Electronically signed and approved by: Jere Valles D.O. Radiologis
--- NOTE | 2024-01-06 10:53 | USB ---
Reason for Exam: Clinical finding. Patient History: Menarche at age 13. First Full-Term at age 22. Patient has history of breast feeding. Patient used Hormonal Contraceptives for 4 years. 2020, Excisional Biopsy on the Right side. 09/27/2020, Benign Core Biopsy on the right side. 07/27/2020, High risk Core Biopsy on the right side. Risk Values: Caryn 5 year model risk: 1.5%. NCI Lifetime model risk: 12.7%. Technique: Method: Targeted. Prior Study Comparison: 06/26/2022 Bilateral MG 3D diag mammo w/cad [facility], [facility]. 12/26/2022 Bilateral MG 3D diag mammo w/cad [facility], [facility]. 12/29/2023 Bilateral MG 3D diag mammo w/cad [facility], [facility]. Findings: The axilla of the right breast was scanned. Several axillary lymph nodes are present. The largest measures 1.8 x 1.0 x 1.0 cm. Cortex maximal is 0.2 cm. Additional smaller lymph nodes are present. No suspicious adenopathy is otherwise evident.. Overall Assessment: Probably benign, BI-RAD 3 Management: Diagnostic Breast Ultrasound of the right breast in 6 months. A clinical breast exam by your physician is recommended on an annual basis and results should be correlated with mammographic findings. This exam should not preclude additional follow-up of suspicious palpable abnormalities. Results were given to the patient verbally at the time of exam. Electronically signed and approved by: Jere Valles D.O. Radiologis
== END | disposition home or self-care (01) ==
LOC: RADUSWWP 09:03
PROVIDERS: ATTEND Surgery
DX: N63.0 Unspecified lump in unspecified breast (principal)

== ENCOUNTER → 2024-01-09 | Outpatient (CLI) | payer OTHER ==
--- NOTE | 2024-01-09 15:13 | P.PN ---
Subjective Progress Note Date: 01/09/24 Principal diagnosis: fibrocystic disease/adenopathy adonis 01-09-24 Principal diagnosis: fibrocystic breast disease Margarita was seen on 01-01-24 and bilateral axillary adenopathy was noted on examination. Bilateral axillary ultrasounds were done on 01-06-24. The left side did not reveal anything of concern BIRAD 2. right axillary ultrasound BIRAD 3 repeat in 6 months. Margarita is a 53-year-old white female seen in consultation initially for Dr. Coffey in 2019 who was noted on a screening mammogram performed in the fall to have an area of concern group/clustered calcifications in the right breast. She did not feel any lesions of concern in either breast and subsequently underwent a right breast stereotactic core biopsy on . This revealed a small intraductal papilloma. She then underwent a needle local excisional biopsy on . Pathology revealed 2 benign intraductal papillomas. Following this she underwent a bilateral mammogram on which revealed clustered calcifications in both breasts. There were excisional biopsy changes in the right breast. These were felt to be a new finding and the patient underwent a bilateral ultrasound. After the ultrasound it was recommended that an MRI or contrast enhanced mammogram be performed. The patient underwent a bilateral breast MRI 09-03-21 which did not show any evidence of malignancy. The patient has had intermittent right axillary swelling which she does not have at this time. She is not complaining of any fever or chills. She has not had any biopsy of the submandibular lymph node and has followed with ENT for this. She states it has not changed. She had a bilateral mammogram on which was personally reviewed and BIRAD 2 Patient is not complaining of any new lumps masses or nodules of concern in either breast. Margarita was seen on 01-01-24 and bilateral axillary adenopathy was noted on examination. Bilateral axillary ultrasounds were done on 01-06-24. The left side did not reveal anything of concern BIRAD 2. right axillary ultrasound BIRAD 3 repeat in 6 months. Caryn Risk 5 year: 1.5% lifetime risk: 12.7% Caffeine: 1 pot of coffee/day nicotine: 1 pack per day Theophylline: every other day Hormones: Negative Family history: mother: cervical, and skin cancer father: skin cancer brother: leukemia T cell Hormonal History: menarche: 13 1 miscarriage, breast fed: yes, age at first : 22 periods regular, last period 1 week ago BCP: 5 years hormones: none Surgical History: right rotator cuff surgery tubal ligation basal cell removed from back Medical History: Narcolepsy Social history: Smoke: One pack per day/years Alcohol:none Drugs: Marijuana daily/relaxation - Constitutional Constitutional: Reports sweats - EENT Eyes: denies blurred vision, denies pain Ears: bilateral: decreased hearing, deny: tinnitus Ears, nose, mouth and throat: Reports headache - Breasts Breasts: bilateral: as per HPI - Cardiovascular Cardiovascular: Denies chest pain, Denies shortness of breath - Respiratory Comment: smoker/ bronchitis/ history of pneumonia in past - Gastrointestinal Gastrointestinal: Denies abdominal pain, Denies diarrhea, Denies nausea, Denies vomiting - Genitourinary (Female) Genitourinary: Denies dysuria, Denies hematuria - Menstruation Menstruation: Reports period normal - Musculoskeletal Musculoskeletal: Reports as per HPI - Integumentary Integumentary: Denies pruritus, Denies rash - Neurological Comment: Narcolepsy Neurological: Denies numbness, Denies weakness - Psychiatric Psychiatric: Reports anxiety, Reports depression - Endocrine Endocrine: Reports fatigue, Denies weight change - Hematologic/Lymphatic Comment: none - Allergic/Immunologic Allergic/Immunologic: Reports seasonal allergies Physical Exam was not repeated today Assessment and Plan Assessment: Impression: Fibrocystic breast disease; mammogram 422-24 benign BIRADS 2 Adenopathy left submandibular area; followed by Dr. Martinez, told a salivary gland Plan: bilateral mammogram in 1 year with appointment at that time Continue follow-up with Dr. Martinez Recommend stopping smoking Bilateral axillary ultrasound follow-up after this is done secondary to palpable axillary adenopathy greater on the right than the left CC: Lawanda Carson Additional CC's: Hetal Perry Objective - Vital Signs Vital signs: Vital Signs Temp 98.7 F 01/09/24 14:41 Pulse 74 01/09/24 14:41 Resp 17 01/09/24 14:41 BP 111/76 01/09/24 14:41 Pulse Ox 100 01/09/24 14:41 FiO2 Intake & Output 01/08/24 01/09/24 01/09/24 18:59 06:59 18:59 Weight 61.235 kg Assessment and Plan Assessment: Impression: Fibrocystic breast disease; mammogram 422-24 benign BIRADS 2 Adenopathy left submandibular area; followed by Dr. Martinez, told a salivary gland Bilateral axillary ultrasound 24 axillary ultrasound/right with several small nodes nonsuspicious, repeat in 6 months right axillary ultrasound left axillary ultrasound BI-RADS 2 Plan: Ultrasound right breast and axilla in 6 months with examination at that time bilateral mammogram in 1 year with appointment at that time Continue follow-up with Dr. Martinez Recommend stopping smoking Follow-up sooner any questions or concerns CC: Lawanda Carson
[2024-01-09 15:27] VITALS: BP 111/76; PULSE 74; RESP 17; TEMP 98.7
== END ==
LOC: WWCWWP 14:26
PROVIDERS: ATTEND Surgery
DX: R92.1 Mammographic calcification found on diagnostic imaging of breast (principal); N60.11 Diffuse cystic mastopathy of right breast; N60.12 Diffuse cystic mastopathy of left breast; F17.210 Nicotine dependence, cigarettes, uncomplicated; R59.0 Localized enlarged lymph nodes; D24.1 Benign neoplasm of right breast; Z88.8 Allergy status to other drugs, medicaments and biological substances

== ENCOUNTER → 2025-03-18 | Outpatient (CLI) | payer BC ==
--- NOTE | 2025-03-18 16:51 | CTL ---
EXAMINATION TYPE: CT Low Dose Lung DATE OF EXAM ORDERED: 03/18/2025 COMPARISON: None CLINICAL INDICATION: Female, 54 years old with history of Z12.2, F17.210; PHH, personal tobacco use, Lung cancer screening, History of Smoking/tobacco use. TECHNIQUE: Low dose computed tomography scan was performed through the chest at 1 mm thick sections a nd reconstructed images in multiple planes at 1 mm and [address] DLP: 43.[address] CTDI: 1.1 mGy Automated exposure control for dose reduction was used. CT DIAGNOSTIC QUALITY: Satisfactory FINDINGS: Nodules: Right midlung 7.7 mm calcified granuloma. Pleural base left lower lobe 5.6 mm groundglass pulmonary nodule (series 6, image 49). LUNGS: COPD: Severity: Mild centrilobular and paraseptal emphysematous changes. Fibrosis: Severity: None Lymph nodes: No enlarged lymph nodes. Calcified right hilar lymph nodes. Other findings: Mild biapical pleural-parenchymal scarring. RIGHT PLEURAL SPACE: Effusion: None Calcification: None Thickening: None Pneumothorax: None LEFT PLEURAL SPACE: Effusion: None Calcification: None Thickening: None Pneumothorax: None HEART: Heart Size: Normal Coronary Calcification: None Pericardial Effusion: None OTHER FINDINGS: Upper abdomen: None Bony thorax: Prominent Schmorl's node involving the superior endplate of the L1 vertebral body. Supraclavicular region: None Other: Couple of biopsy markers within the right breast. IMPRESSION: 1. Couple of benign-appearing pulmonary nodules. 2. Mild emphysematous change. CT LUNG RAD AND CT CHEST RECOMMENDATION: Lung-Rad 2 Benign Appearance or Behavior: Continue annual sc reening with LDCT in 12 months. S Modifier (other clinically significant findings): None [facility], , 03/18/2025 4:48 PM
[2025-03-19 02:56] LABS: T4, Free (Free Thyroxine) 1.18 ng/dL (0.80-1.80)
--- NOTE | 2025-03-19 08:20 | US ---
EXAMINATION TYPE: US thyroid st tissue head/neck DATE OF EXAM: 03/18/2025 COMPARISON: 01/08/2023 CLINICAL INDICATION: Female, 54 years old with history of E04.9 US THYROID; TECHNIQUE: Grayscale and color Doppler imaging of the thyroid gland. FINDINGS: GLAND SIZE: Right Lobe: 3.6 x 1.5 x 1.3 cm Overall Parenchyma: homogeneous Left Lobe: 4.1 x 1.5 x 1.3 cm Overall Parenchyma: homogeneous Isthmus Thickness: 0.2 cm NODULES RIGHT: # of nodules measured on right: 1 1. 0.8 X 0.4 x 0.6 cm, mid medial, solid or almost completely solid, isoechoic nodule, which is wid er than tall, with ill-defined margins, without echogenic foci. Prior size: 0.8 x 0.4 x 0.6 cm . Tear 3 nodule LEFT: # of nodules measured on left: 1 1. 0.7 X 0.4 x 0.5 cm, mid, solid or almost completely solid, isoechoic nodule, which is wider than tall, with ill-defined margins, without echogenic foci. Prior size: 0.7 x 0.4 x 0.6 cm . TR 3 nodule ISTHMUS: # of nodules measured in the isthmus: 0 Bilateral neck scanned, no evidence of lymphadenopathy. IMPRESSION: 1. No thyromegaly. 2. Single stable subcentimeter TR 3 nodules bilaterally. Highest TI-RADS level nodule reported: 2017 ACR TI-RADS LEVEL: 3 TI-RADS assessment score and recommendation for follow-up based on appropriate scoring and treatment protocols. TR1 Benign No FNA TR2 Not suspicious No FNA TR3: If nodule size is ? 2.5 cm, FNA is recommended. If nodule size is ? 1.5 cm, follow-up imaging at 1, 3, and 5 years is recommended. TR4: If nodule size is ? 1.5 cm, FNA is recommended. If nodule size is ? 1.0 cm, follow-up imaging at 1, 2, 3, and 5 years is recommended. TR5: If nodule size is ? 1.0 cm, FNA is recommended. If nodule size is ? 0.5 cm, annual follow-up for up to 5 years is recommended. TR 1 thyroid nodules have a 0.3 % risk of malignancy. TR 2 thyroid nodules have a 1.5 % risk of malignancy. TR 3 thyroid nodules have a 4.8 % risk of malignancy. TR 4 thyroid nodules have a 9.1 % risk of malignancy. TR 5 thyroid nodules have a 35 % risk of malignancy. [email or web address] [facility], , 03/19/2025 8:18 AM
== END | disposition home or self-care (01) ==
LOC: RADUSWWP 15:29
PROVIDERS: ATTEND Internal Medicine Critical Care Medicine
DX: Z12.2 Encounter for screening for malignant neoplasm of respiratory organs (principal); E04.9 Nontoxic goiter, unspecified; F17.210 Nicotine dependence, cigarettes, uncomplicated; R91.8 Other nonspecific abnormal finding of lung field; J43.9 Emphysema, unspecified
CPT/HCPCS: 71271; 76536; 84439; 84443